=== PATIENT | female | born 1945 | race African-American/Black ===

== ENCOUNTER → 2017-01-16 | Outpatient (CLI) | payer MEDICARE | LOC: OD 15:24 | PROVIDERS: ATTEND Family Medicine | DX: M25.512 Pain in left shoulder (principal) ==

== ENCOUNTER → 2018-09-27 | Outpatient (CLI) | payer MEDICARE ==
--- NOTE | 2018-09-27 10:52 | WOMENS IMAGING REPORT ---
EXAM DESCRIPTION: 3D SCREENING MAMMO BILAT COMPLETED DATE/TIME: 09/27/2018 10:24 am REASON FOR STUDY: SCREENING MAMMO Z12.31 ENCNTR SCREEN MAMMOGRAM FOR MALIGNANT NEOPLASM OF JULITA COMPARISON: [id number] TECHNIQUE: Standard craniocaudal and mediolateral oblique views of each breast recorded using digita l acquisition and breast tomosynthesis. LIMITATIONS: None. FINDINGS: No masses, calcifications or architectural distortion. No areas of suspicion. Read with the assistance of CAD. .[facility] - R2 Cenova Version 1.3 .[facility] - R2 Cenova Version 1.[address] - R2 Cenova Version 2.4 .[facility] [place] - R2 Cenova Version 2.4 .[facility] - R2 Associate Manager [employer] Version 9.2 IMPRESSION: NORMAL MAMMOGRAM. BIRADS 1. BREAST DENSITY: b. There are scattered areas of fibroglandular density. BIRAD: 1 NEGATIVE RECOMMENDATION: ROUTINE SCREENING COMMENT: The patient has been notified of the results by letter per SA requirements. Additional no tification policies are in place for contacting patient with suspicious or incomplete findings. Quality ID #[id number]: The [employer] recommends an annual screening mammogram for women aged 40 years or over. This facility utilizes a reminder system to ensure that all patients receive reminder letters, and/or direct phone calls for appointments. This includes reminders for routine scr eening mammograms, diagnostic mammograms, or other Breast Imaging Interventions when appropriate. Th is patient will be placed in the appropriate reminder system. The [employer] (ACR) has developed recommendations for screening MRI of the breast s in certain patient populations, to be used in conjunction with mammography. Breast MRI surveillanc e may be appropriate for women with more than 20% lifetime risk of developing breast cancer as deter mined by genetic testing, significant family history of the disease, or history of mantle radiation f or Hodgkins Disease. ACR Practice Guidelines 2008. DBT Technology DBT is a type of tomographic mammography. With conventional mammography, overlapping breast tissue ma y make lesions difficult to detect, even with good compression. DBT uses an x-ray tube that rotates a round the breast, taking images at different angles. These images are then combined to create thin sl ices of the breast that the radiologist can view as a 3D reconstruction. The Kapture unit can perform full-field digital mammograms (2D imaging); or DBT (3D imaging); or both, in a combination mode that quickly performs both the mammogram and the tomosynthesis scan while the breast is still compressed. PQRS 6045F: Fluoroscopic imaging is not utilized for breast tomosynthesis. TECHNICAL DOCUMENTATION: FINDING NUMBER: (1) ASSESSMENT: (1) JOB ID: [id number] [email or web address]- All Rights Reserved Reading location - IP/workstation name: [email or web address]
== END ==
LOC: WI 09:42
PROVIDERS: ATTEND Physician Assistant
DX: Z12.31 Encounter for screening mammogram for malignant neoplasm of breast (principal)
CPT/HCPCS: 77063; 77067

== ENCOUNTER 2019-01-09 09:01 | Inpatient (IN) | payer MEDICARE ==
[2019-01-09] MEDS ORDERED: METHYLPREDNISOLONE INJ 125 MG/2 ML SDV IV ONE (09:40)
[2019-01-09] MEDS ORDERED: FAMOTIDINE INJ/PF 20 MG/2 ML SDV IV ONE (09:40)
[2019-01-09] MEDS ORDERED: DIPHENHYDRAMINE HCL 50 MG/ML VIAL IV ONE (09:40)
[2019-01-09] MEDS ORDERED: NORMAL SALINE 250 ML IV PRN (12:03)
[2019-01-09] MEDS ORDERED: TRANEXAMIC ACID INJ/PF 1,000 MG/10 ML SDV IV ONE ×2 (12:07→13:04)
--- NOTE | 2019-01-09 12:43 | ER Document Report ---
Entered by PARESH MILLER SCRIBE 01/09/19 0938 Acting as scribe for:MARGE FERNANDEZ DO ED Allergic Reaction - General Chief Complaint: Lip Swelling Stated Complaint: POSSIBLE ALLERGIC REACTION Time Seen by Provider: 01/09/19 09:26 Mode of Arrival: Ambulatory Information source: Patient Notes: 73-year-old female who presents to the emergency department today with com plaints of lower lip swelling. Patient states she first noticed this lip swelling when she woke up this morning at 0630 this morning. Patient states she has had lip swelling two other times in the past. Patient states during the previous x2 episodes she was on lisinopril, which she has since been taken off of. Patient states the last lip swelling episode she has had was approximately x2 years ago. Patient mentions that she worked outside in her yard yesterday but did not have any insect bites or contact with anything that she thinks could be causing this. Patient states x4 days ago she had an ant bite to her finger but that has cleared up. Patient denies any difficulty swallowing, tongue swelling, throat swelling, or shortness of breath. TRAVEL OUTSIDE OF THE [place] IN LAST 30 DAYS: No - Related Data Allergies/Adverse Reactions: penicillin G [Penicillin G] Allergy (Unknown, Verified 10/21/15 08:17) had as child lisinopril [Lisinopril] Allergy (Verified 10/21/15 08:17) levofloxacin [From Levaquin] Adverse Reaction (Severe, Verified 10/21/15 08:17) Swelling of Throat Past Medical History - General Information source: Patient - Social History Smoking Status: Never Smoker Cigarette use (# per day): No Chew tobacco use (# tins/day): No Frequency of alcohol use: None Drug Abuse: None Lives with: Family Family History: Reviewed & Not Pertinent Patient has suicidal ideation: No Patient has homicidal ideation: No - Past Medical History Cardiac Medical History: Reports: Hx Hypercholesterolemia, Hx Hypertension Past Surgical History: Reports: Hx Breast Surgery - Lump removed from breast in 2010, Hx Hysterectomy, Hx Thyroid Surgery - Left lobe of thryroid removed, Hx TonsillectomyComment Only: Hx Orthopedic Surgery - Feet - Immunizations Hx Diphtheria, Pertussis, Tetanus Vaccination: No Hx Pneumococcal Vaccination: 10/01/12 Review of Systems - Review of Systems Constitutional: No symptoms reported EENT: See HPI, Other - lower lip swelling. denies: Difficulty swallowing, Thr oat swelling Cardiovascular: No symptoms reported Respiratory: No symptoms reported Gastrointestinal: No symptoms reported Genitourinary: No symptoms reported Female Genitourinary: No symptoms reported Musculoskeletal: No symptoms reported Skin: No symptoms reported Hematologic/Lymphatic: No symptoms reported Neurological/Psychological: No symptoms reported -: Yes All other systems reviewed and negative Physical Exam - Vital signs Vitals: Temp Pulse Resp BP Pulse Ox 97.8 F 69 18 155/94 H 97 01/09/19 09:06 01/09/19 09:06 01/09/19 09:06 01/09/19 09:06 01/09/19 09:06 - Notes Notes: PHYSICAL EXAM GENERAL: Alert, interacts well. No acute distress. HEAD: Normocephalic, atraumatic. EYES: Pupils equal, round, and reactive to light. Extraocular movements intact. ENT: Oral mucosa moist, tongue midline. Lower lip is not firm or indurated. Small amount of symmetric lower lip swelling without palpable masses. No tongue swelling. Airway is patent. NECK: Full range of motion. Supple. Trachea midline. LUNGS: Clear to auscultation bilaterally, no wheezes, rales, or rhonchi. No respiratory distress. HEART: Regular rate and rhythm. No murmurs, gallops, or rubs. ABDOMEN: Soft, non-tender. Non-distended. Bowel sounds present in all 4 quadrants. No guarding, rigidity, or rebound. EXTREMITIES: Moves all 4 extremities spontaneously. No edema, radial pulses 2/4 bilaterally. No cyanosis. NEUROLOGICAL: Alert and oriented x3. Normal speech. PSYCH: Normal affect, normal mood. SKIN: Warm, dry, normal turgor. Course - Re-evaluation Re-evalutation: 01/09/19 12:31 Patient has been rechecked, left lower lip is slightly increased in size however she now feels like there is something thick in her mouth, states that she feels like her throat is may be swelling and feels the need to swallow constantly. Patient will be started on FFP and tranexamic acid. Patient is constantly clearing her throat while in the room. Tongue is not swollen. Patient is a Mallampati 4, I am unable to visualize the back of her throat at baseline. No respiratory distress at this time. Dr. Omari Mcneil will be called for possible admission. 01/09/19 12:[address] Mcneil who agrees to admit the patient, request that I consult ENT and that a good CT scan of the neck to look for any signs of epiglottitis. Also requests that I order C1 esterase inhibitor tests. Agrees to admit the patient to the ICU. I am still trying to get a hold of ENT for this inpatient consult. 01/09/19 12:[address] cruz from anesthesiology, she is aware of the patient's presence. Also aware that I am not currently asking her to come over and manage the airway on this patient. Patient is currently maintaining her own airway well 01/09/19 12:48 01/09/19 13:[address] Greene who recommended adding Decadron in addition to the Solu- Medrol. Agrees with ICU bed. Aware of consult from Dr. Mcneil. Also aware that he is not being asked to come in and evaluate the patient at the bedside as an ER consult. This is a inpatient consult but I called to him as a courtesy to Dr. Mcneil. - Vital Signs Vital signs: Temp Pulse Resp BP Pulse Ox 97.8 F 66 15 170/110 H 96 01/09/19 09:06 01/09/19 14:01 01/09/19 14:01 01/09/19 14:00 01/09/19 14:01 - Laboratory Result Diagrams: 01/09/19 12:50 01/09/19 12:50 Laboratory results interpreted by me: 01/09/19 01/09/19 12:50 12:50 Hgb 11.9 L MCV 79 L MCH 26.0 L RDW 16.7 H Monocytes % 2.8 L Chloride 110 H Critical Care Note - Critical Care Note Total time excluding time spent on procedures (mins): 35 Discharge - Discharge Clinical Impression: Angioedema Qualifiers: Encounter type: initial encounter Qualified Code(s): T78.3XXA - Angioneurotic edema, initial encounter Condition: Fair Disposition: ADMITTED INPATIENT Admitting Provider: [facility] Unit Admitted: ICU I personally performed the services described in the documentation, reviewed and edited the documentation which was dictated to the scribe in my presence, and it accurately records my words and actions.
[2019-01-09 13:05] LABS: ABSOLUTE EOSINOPHILS # (AUTO) 0.1 10^3/uL (0.0-0.6); ABSOLUTE LYMPHOCYTES (AUTO) 1.4 10^3/uL (0.5-4.7); ABSOLUTE MONOCYTES (AUTO) 0.1 10^3/uL (0.1-1.4); ABSOLUTE NEUT (AUTO) 3.1 10^3/uL (1.7-8.2); BASOPHILS % (AUTO) 0.8 % (0-2); HEMOGLOBIN 11.9 g/dL (12.0-15.5); LYMPHOCYTES % (AUTO) 28.5 % (13-45); MEAN CORPUSCULAR HGB CONC 33.1 g/dL (32.0-36.0); MEAN CORPUSCULAR VOLUME 79 fl (80-97); MONOCYTES % (AUTO) 2.8 % (3-13); PLATELET COUNT 150 10^3/uL (150-450); RED BLOOD COUNT 4.59 10^6/uL (3.72-5.28); RED CELL DISTRIBUTION WIDTH 16.7 % (11.5-14.0); SEGMENTED NEUTROPHILS % (AUTO) 65.9 % (42-78); TOTAL CELLS COUNTED % (AUTO) 100 %; WHITE BLOOD COUNT 4.8 10^3/uL (4.0-10.5)
[2019-01-09 13:34] LABS: ALANINE AMINOTRANSFERASE 28 U/L (9-52); ALKALINE PHOSPHATASE 65 U/L (38-126); ASPARTATE AMINO TRANSFERASE 31 U/L (14-36); BILIRUBIN,DIRECT 0.2 mg/dL (0.0-0.4); BILIRUBIN,TOTAL 0.4 mg/dL (0.2-1.3); BLOOD UREA NITROGEN 9 mg/dL (7-20); CALCIUM 9.8 mg/dL (8.4-10.2); GLUCOSE 109 mg/dL (75-110); POTASSIUM 4.1 mmol/L (3.6-5.0); TOTAL PROTEIN 7.3 g/dL (6.3-8.2)
[2019-01-09] MEDS ORDERED: ACETAMINOPHEN 325 MG TABLET PO PRN (13:36)
[2019-01-09] MEDS ORDERED: NORMAL SALINE 1000 ML 1,000 ML IV PRN ×2 (13:36→17:24)
[2019-01-09 13:39] LABS: ANION GAP 5 (5-19); CARBON DIOXIDE 28 mmol/L (22-30); CHLORIDE 110 mmol/L (98-107); SODIUM 143.3 mmol/L (137-145)
[2019-01-09] MEDS ORDERED: GLUCAGON,HUMAN RECOMB 1 MG INJ IM PRN (13:40)
[2019-01-09] MEDS ORDERED: DEXTROSE 50%-WATER 25 GM/50 ML DISP.SYRIN IV PRN ×2 (13:40)
[2019-01-09] MEDS ORDERED: DEXTROSE 40% GEL 15 GM TUBE PO PRN ×2 (13:40)
[2019-01-09] MEDS ORDERED: DEXAMETHASONE SOD PHOS INJ 10 MG/1 ML VIAL IM ONE ×2 (13:45→16:15)
[2019-01-09] MEDS ORDERED: METHYLPREDNISOLONE INJ 125 MG/2 ML SDV IV SCH (14:00)
[2019-01-09] MEDS ORDERED: DIPHENHYDRAMINE HCL 25 MG CAPSULE PO PRN (14:42)
[2019-01-09] MEDS ORDERED: LEVOTHYROXINE SODIUM 0.025 MG TABLET PO SCH (14:45)
--- NOTE | 2019-01-09 15:53 | RADIOLOGY REPORT (SQ) ---
EXAM DESCRIPTION: CT SOFT TISSUE NECK WITH COMPLETED DATE/TIME: 01/09/2019 3:29 pm REASON FOR STUDY: angioedema, look at airway COMPARISON: 09/09/2014 TECHNIQUE: Post IV contrasted scanning from skull base through lung apices with review of bone, soft tissue and lung windows. Reconstructed coronal and sagittal MPR images reviewed. All images stored on PACS. All CT scanners at this facility use dose modulation, iterative reconstruction, and/or weight based d osing when appropriate to reduce radiation dose to as low as reasonably achievable (ALARA). [facility]: Dose Right [facility]: CareDose [facility]: Dose Right [facility]: Teradose 4D [facility]: BMEYE CONTRAST TYPE AND DOSE: contrast/concentration: Isovue 350.00 mg/ml; Total Contrast Delivered: 75.0 ml; Total Saline Delivered: 55.0 ml RENAL FUNCTION: GFR > 60. RADIATION DOSE: CT Rad equipment meets quality standard of care and radiation dose reduction techniq ues were employed. CTDIvol: 15.2 - 16.7 mGy. DLP: 906 mGy-cm. . LIMITATIONS: Dental artifact. FINDINGS: SKULL BASE: Intact. MAJOR SALIVARY GLANDS: Approximately 1 cm cyst in the left submandibular gland unchanged. LYMPHADENOPATHY: No adenopathy. MUCOSAL MASSES OR ASYMMETRY: No mucosal masses or asymmetry. LARYNX/CORDS: No abnormal findings. VASCULAR STRUCTURES: The major vessels are patent. LUNG APICES: Clear. BONES: Intact. THYROID: Normal size. No masses. PARANASAL SINUSES: Clear. OTHER: No other significant finding. IMPRESSION: NO SIGNIFICANT FINDING IN THE SOFT TISSUES OF THE NECK. TECHNICAL DOCUMENTATION: JOB ID: [id number] Quality ID # [id number]: Final reports with documentation of one or more dose reduction techniques (e.g., Au tomated exposure control, adjustment of the mA and/or kV according to patient size, use of iterative reconstruction technique) 2010 [employer]- All Rights Reserved Reading location - IP/workstation name: [email or web address]
[2019-01-09] MEDS: INSULIN LISPRO 100 UNIT/ML 3 ML VIAL SUBCUT SCH ×2 (16:15→22:27)
[2019-01-09] MEDS: LEVOTHYROXINE SODIUM 0.075 MG TABLET PO SCH (16:16)
--- NOTE | 2019-01-09 17:25 | PDOC H&P ---
History of Present Illness Admission Date/PCP: 01/09/19 13:02 LOVE PUCKETT MD Patient complains of: Lip swelling History of Present Illness: DULCE CRAWLEY is a 73 year old female This is a 73-year-old female with a history of the hyperlipidemia history of the hypothyroidism status post surgery history of hypertension's with a history of the angioedema in the past due to the lisinopril was off the lisinopril from several years came to the emergency department with the lower lip swelling According the patient she was fine yesterday working in the yard no problems this morning when the patient's workup start seeing some swelling in the lips do not remember any insect bites does not remember any new medications no new foods In the emergency departments patient's lip swelling is getting more worse patient received the IV Solu-Medrol received FFP and received IV Pepcid Patient also given Decadron per ENT instructions Patient when I saw it feel better still have a swelling and feel on the face inside also Patient is denied any difficulty in breathing Patient CT of the neck is negative for any other acute obstructions or any findings At this point decided to patient's in a close monitoring units for the next 24 hours to any further deterioration or any respiratory distressed Patient's already put on IV Solu-Medrol IV Pepcid's IV fluids Patient is denied any chest pain to than any shortness of the breath Past Medical History Cardiac Medical History: Reports: Hyperlipidema, Hypertension Denies: Coronary Artery Disease, Myocardial Infarction Pulmonary Medical History: Denies: Asthma, Bronchitis, Chronic Obstructive Pulmonary Disease (COPD), Pneumonia Neurological Medical History: Denies: Seizures GI Medical History: Denies: Hepatitis, Hiatal Hernia Musculoskeltal Medical History: Denies: Arthritis Hematology: Reports: Anemia Denies: Sickle Cell Disease Past Surgical History Past Surgical History: Reports: Hysterectomy, Tonsillectomy Denies: Amputation, Mastectomy, Pacemaker Comment Only: Orthopedic Surgery - Feet Social History Lives with: Family Smoking Status: Never Smoker Family History Family History: Reviewed & Not Pertinent Parental Family History Reviewed: Yes Children Family History Reviewed: Yes Sibling(s) Family History Reviewed.: Yes Medication/Allergy Home Medications: Levothyroxine Sodium [Synthroid] 75 mcg PO .5DAYSAWEEK 01/09/14 Aspirin [Ecotrin] 81 mg PO DAILY 12/10/14 Diphenhydramine HCl [Allergy Relief] 25 mg PO DAILY 01/09/19 Pitavastatin Calcium [Livalo] 4 mg PO DAILY 01/09/19 Allergies/Adverse Reactions: penicillin G [Penicillin G] Allergy (Unknown, Verified 10/21/15 08:17) had as child lisinopril [Lisinopril] Allergy (Verified 10/21/15 08:17) levofloxacin [From Levaquin] Adverse Reaction (Severe, Verified 10/21/15 08:17) Swelling of Throat Review of Systems Constitutional: ABSENT: chills, fever(s), headache(s), weight gain, weight loss Eyes: ABSENT: visual disturbances Ears: ABSENT: hearing changes Cardiovascular: ABSENT: chest pain, dyspnea on exertion, edema, orthropnea, palpitations Respiratory: ABSENT: cough, hemoptysis Gastrointestinal: ABSENT: abdominal pain, constipation, diarrhea, hematemesis, hematochezia, nausea, vomiting Genitourinary: ABSENT: dysuria, hematuria Musculoskeletal: ABSENT: joint swelling Integumentary: ABSENT: rash, wounds Neurological: ABSENT: abnormal gait, abnormal speech, confusion, dizziness, focal weakness, syncope Psychiatric: ABSENT: anxiety, depression, homidical ideation, suicidal ideation Endocrine: ABSENT: cold intolerance, heat intolerance, menstrual abnormalities, polydipsia, polyuria Hematologic/Lymphatic: ABSENT: easy bleeding, easy bruising, lymphadenopathy Physical Exam Vital Signs: Temp Pulse Resp BP Pulse Ox 97.8 F 66 15 170/110 H 96 01/09/19 09:06 01/09/19 14:01 01/09/19 14:01 01/09/19 14:00 01/09/19 14:01 Intake & Output 01/08/19 01/09/19 01/10/19 06:59 06:59 06:59 Intake Total 323 Balance 323 Weight 98.8 kg General appearance: PRESENT: no acute distress, well-developed, well-nourished Head exam: PRESENT: atraumatic, normocephalic Eye exam: PRESENT: conjunctiva pink, EOMI, PERRLA. ABSENT: scleral icterus Ear exam: PRESENT: normal external ear exam Mouth exam: PRESENT: moist, neck supple, tongue midline Additional comments: Lip swelling is present Unable to examine the back of the throat Throat exam: PRESENT: other Additional comments: Lower lip swelling but unable to examine back of her throat due to the swelling Neck exam: PRESENT: full ROM. ABSENT: carotid bruit, JVD, lymphadenopathy, thyromegaly Respiratory exam: PRESENT: clear to auscultation arie Cardiovascular exam: PRESENT: RRR. ABSENT: diastolic murmur, rubs, systolic murmur Pulses: PRESENT: normal dorsalis pedis pul, +2 pedal pulses bilateral Vascular exam: PRESENT: normal capillary refill GI/Abdominal exam: PRESENT: normal bowel sounds, soft. ABSENT: distended, guarding, mass, organolmegaly, rebound, tenderness Rectal exam: PRESENT: deferred Musculoskeletal exam: PRESENT: ambulatory Neurological exam: PRESENT: alert, awake, oriented to person, oriented to place, oriented to time, oriented to situation, CN II-XII grossly intact. ABSENT: motor sensory deficit Psychiatric exam: PRESENT: appropriate affect, normal mood. ABSENT: homicidal ideation, suicidal ideation Skin exam: PRESENT: dry, intact, warm. ABSENT: cyanosis, rash Results Laboratory Results: 01/09/19 12:50 01/09/19 12:50 01/09/19 01/09/19 01/09/19 12:50 12:50 13:15 WBC 4.8 RBC 4.59 Hgb 11.9 L Hct 36.0 MCV 79 L MCH 26.0 L MCHC 33.1 RDW 16.7 H Plt Count 150 Seg Neutrophils % 65.9 Lymphocytes % 28.5 Monocytes % 2.8 L Eosinophils % 2.0 Basophils % 0.8 Absolute Neutrophils 3.1 Absolute Lymphocytes 1.4 Absolute Monocytes 0.1 Absolute Eosinophils 0.1 Absolute Basophils 0.0 Sodium 143.3 Potassium 4.1 Chloride 110 H Carbon Dioxide 28 Anion Gap 5 BUN 9 Creatinine 0.73 Est GFR ( Amer) > 60 Est GFR (Non-Af Amer) > 60 Glucose 109 Calcium 9.8 Total Bilirubin 0.4 AST 31 ALT 28 Alkaline Phosphatase 65 Total Protein 7.3 Albumin 4.0 Blood Type AB POSITIVE Impressions: Soft Tissue Neck CT 01/09/19 12:37 IMPRESSION: NO SIGNIFICANT FINDING IN THE SOFT TISSUES OF THE NECK. Assessment & Plan - Diagnosis (1) Angioedema Qualifiers: Encounter type: initial encounter Qualified Code(s): T78.3XXA - Angioneurotic edema, initial encounter Is this a current diagnosis for this admission?: Yes Plan: Put the patient in ICU for the next 24-hour for close monitoring for any distressed Continues to IV steroid IV Pepcid's and Benadryl Consult the ENT to further look out inside Will order the C1 inhibitor esterase (2) Hypertension Qualifiers: Hypertension type: essential hypertension Qualified Code(s): I10 - Essential (primary) hypertension Is this a current diagnosis for this admission?: Yes Plan: Consider the Norvasc 5 mg p.o. daily (3) Hyperlipidemia Qualifiers: Hyperlipidemia type: unspecified Qualified Code(s): E78.5 - Hyperlipidemia, unspecified Is this a current diagnosis for this admission?: Yes Plan: Continues to current medications (4) Impaired fasting glucose Is this a current diagnosis for this admission?: Yes Plan: Continues a sliding scale - Time Time Spent: 50 to 70 Minutes Critical Time spent with patient: 35 or more minutes Medications reviewed and adjusted accordingly: Yes Anticipated discharge: Home Within: Other - Inpatient Certification Based on my medical assessment, after consideration of the patient's comorbidities, presenting symptoms, or acuity I expect that the services needed warrant INPATIENT care.: Yes I certify that my determination is in accordance with my understanding of Medicare's requirements for reasonable and necessary INPATIENT services [42 CFR 412.3e].: Yes Medical Necessity: Significant Comorbidiites Make Outpatient Treatment Too Risky, Need Close Monitoring Due to Risk of Patient Decompensation, Need For IV Fluids Post Hospital Care: D/C Manufacturing Quality Inspector Documentation - Plan Summary Plan Summary: Admit the patient in ICU See other MD order
[2019-01-09] MEDS: METHYLPREDNISOLONE INJ 40 MG/1 ML SDV IV SCH (18:10)
[2019-01-09] MEDS: FAMOTIDINE INJ/PF 20 MG/2 ML SDV IV SCH (22:25)
[2019-01-09] MEDS: AMLODIPINE BESYLATE 2.5 MG TABLET PO SCH (22:27)
[2019-01-10] MEDS: METHYLPREDNISOLONE INJ 40 MG/1 ML SDV IV SCH ×3 (01:42→17:58)
[2019-01-10 04:35] LABS: ABSOLUTE LYMPHOCYTES (AUTO) 1.1 10^3/uL (0.5-4.7); ABSOLUTE MONOCYTES (AUTO) 0.1 10^3/uL (0.1-1.4); ABSOLUTE NEUT (AUTO) 7.1 10^3/uL (1.7-8.2); BASOPHILS % (AUTO) 0.1 % (0-2); HEMATOCRIT 33.9 % (36.0-47.0); HEMOGLOBIN 11.4 g/dL (12.0-15.5); LYMPHOCYTES % (AUTO) 12.9 % (13-45); MEAN CORPUSCULAR HEMOGLOBIN 25.9 pg (27.0-33.4); MEAN CORPUSCULAR HGB CONC 33.6 g/dL (32.0-36.0); MEAN CORPUSCULAR VOLUME 77 fl (80-97); MONOCYTES % (AUTO) 1.2 % (3-13); PLATELET COUNT 125 10^3/uL (150-450); RED CELL DISTRIBUTION WIDTH 16.4 % (11.5-14.0); SEGMENTED NEUTROPHILS % (AUTO) 85.8 % (42-78); TOTAL CELLS COUNTED % (AUTO) 100 %; WHITE BLOOD COUNT 8.3 10^3/uL (4.0-10.5)
[2019-01-10 04:53] LABS: ALANINE AMINOTRANSFERASE 24 U/L (9-52); ALBUMIN 3.8 g/dL (3.5-5.0); ALKALINE PHOSPHATASE 58 U/L (38-126); ANION GAP 7 (5-19); ASPARTATE AMINO TRANSFERASE 24 U/L (14-36); BILIRUBIN,DIRECT 0.2 mg/dL (0.0-0.4); BILIRUBIN,TOTAL 0.3 mg/dL (0.2-1.3); BLOOD UREA NITROGEN 12 mg/dL (7-20); CALCIUM 9.7 mg/dL (8.4-10.2); CARBON DIOXIDE 22 mmol/L (22-30); CHLORIDE 113 mmol/L (98-107); GLUCOSE 156 mg/dL (75-110); SODIUM 142.3 mmol/L (137-145); TOTAL PROTEIN 7.1 g/dL (6.3-8.2)
[2019-01-10] MEDS: LEVOTHYROXINE SODIUM 0.075 MG TABLET PO SCH (05:19)
[2019-01-10] MEDS: INSULIN LISPRO 100 UNIT/ML 3 ML VIAL SUBCUT SCH ×3 (07:55→16:17)
[2019-01-10] MEDS: AMLODIPINE BESYLATE 2.5 MG TABLET PO SCH ×2 (10:13→22:14)
[2019-01-10] MEDS: FAMOTIDINE INJ/PF 20 MG/2 ML SDV IV SCH ×2 (10:13→22:17)
[2019-01-10] MEDS: ASPIRIN 81 MG TABLET, ENT COATED PO SCH (10:14)
[2019-01-10] MEDS: ENOXAPARIN SODIUM INJ 40 MG/0.4 ML DISP.SYRIN SUBCUT SCH (10:54)
[2019-01-10] MEDS ORDERED: NORMAL SALINE 1000 ML 1,000 ML IV PRN (12:35)
--- NOTE | 2019-01-10 12:35 | PDOC PROGRESS REPORT ---
Subjective Progress Note for:: 01/10/19 Subjective:: Patient is feeling much better Lip swelling is pretty much resolved ENT evaluate the patient's no any adverse issues Patient's otherwise only thing remember to take the ibuprofen before this happens Patients need another allergies testing evaluation as per discussed with the ENT he will do it Patient has a history of the left hemithyroidectomy for the benign tumor we check the thyroid antibody Reason For Visit: ANGIOEDEMA Physical Exam Vital Signs: Temp Pulse Resp BP Pulse Ox 97.9 F 85 21 H 151/83 H 97 01/10/19 12:30 01/10/19 12:30 01/10/19 12:30 01/10/19 12:30 01/10/19 12:30 Intake & Output 01/09/19 01/10/19 01/11/19 06:59 06:59 06:59 Intake Total 1254 200 Output Total 600 350 Balance 654 -150 Weight 99.8 kg General appearance: PRESENT: no acute distress, well-developed, well-nourished Head exam: PRESENT: atraumatic, normocephalic Eye exam: PRESENT: conjunctiva pink, EOMI, PERRLA. ABSENT: scleral icterus Ear exam: PRESENT: normal external ear exam Mouth exam: PRESENT: moist, tongue midline Neck exam: PRESENT: full ROM. ABSENT: carotid bruit, JVD, lymphadenopathy, thyromegaly Respiratory exam: PRESENT: clear to auscultation arie Cardiovascular exam: PRESENT: RRR. ABSENT: diastolic murmur, rubs, systolic mu rmur Vascular exam: PRESENT: normal capillary refill GI/Abdominal exam: PRESENT: normal bowel sounds, soft. ABSENT: distended, guarding, mass, organolmegaly, rebound, tenderness Rectal exam: PRESENT: deferred Musculoskeletal exam: PRESENT: ambulatory Neurological exam: PRESENT: alert, awake, oriented to person, oriented to place, oriented to time, oriented to situation, CN II-XII grossly intact. ABSENT: motor sensory deficit Psychiatric exam: PRESENT: appropriate affect, normal mood. ABSENT: homicidal ideation, suicidal ideation Skin exam: PRESENT: dry, intact, warm. ABSENT: cyanosis, rash Results Laboratory Results: 01/10/19 04:20 01/10/19 04:20 01/09/19 01/09/19 01/09/19 12:50 12:50 13:15 WBC 4.8 RBC 4.59 Hgb 11.9 L Hct 36.0 MCV 79 L MCH 26.0 L MCHC 33.1 RDW 16.7 H Plt Count 150 Seg Neutrophils % 65.9 Lymphocytes % 28.5 Monocytes % 2.8 L Eosinophils % 2.0 Basophils % 0.8 Absolute Neutrophils 3.1 Absolute Lymphocytes 1.4 Absolute Monocytes 0.1 Absolute Eosinophils 0.1 Absolute Basophils 0.0 Sodium 143.3 Potassium 4.1 Chloride 110 H Carbon Dioxide 28 Anion Gap 5 BUN 9 Creatinine 0.73 Est GFR ( Amer) > 60 Est GFR (Non-Af Amer) > 60 Glucose 109 Calcium 9.8 Total Bilirubin 0.4 AST 31 ALT 28 Alkaline Phosphatase 65 Total Protein 7.3 Albumin 4.0 Blood Type AB POSITIVE 01/10/19 01/10/19 04:20 04:20 WBC 8.3 RBC 4.40 Hgb 11.4 L Hct 33.9 L MCV 77 L MCH 25.9 L MCHC 33.6 RDW 16.4 H Plt Count 125 L Seg Neutrophils % 85.8 H Lymphocytes % 12.9 L Monocytes % 1.2 L Eosinophils % 0.0 Basophils % 0.1 Absolute Neutrophils 7.1 Absolute Lymphocytes 1.1 Absolute Monocytes 0.1 Absolute Eosinophils 0.0 Absolute Basophils 0.0 Sodium 142.3 Potassium 4.0 Chloride 113 H Carbon Dioxide 22 Anion Gap 7 BUN 12 Creatinine 0.73 Est GFR ( Amer) > 60 Est GFR (Non-Af Amer) > 60 Glucose 156 H Calcium 9.7 Total Bilirubin 0.3 AST 24 ALT 24 Alkaline Phosphatase 58 Total Protein 7.1 Albumin 3.8 Blood Type Impressions: Soft Tissue Neck CT 01/09/19 12:37 IMPRESSION: NO SIGNIFICANT FINDING IN THE SOFT TISSUES OF THE NECK. Assessment & Plan - Diagnosis (1) Angioedema Qualifiers: Encounter type: initial encounter Qualified Code(s): T78.3XXA - Angioneurotic edema, initial encounter Is this a current diagnosis for this admission?: Yes Plan: Resolving We decrease the IV Solu-Medrol Continues to IV Pepcid Continues IV fluid (2) Hypertension Qualifiers: Hypertension type: essential hypertension Qualified Code(s): I10 - Essential (primary) hypertension Is this a current diagnosis for this admission?: Yes Plan: Consider the Norvasc 5 mg p.o. daily (3) Hyperlipidemia Qualifiers: Hyperlipidemia type: unspecified Qualified Code(s): E78.5 - Hyperlipidemia, unspecified Is this a current diagnosis for this admission?: Yes Plan: Continues to current medications (4) Impaired fasting glucose Is this a current diagnosis for this admission?: Yes Plan: Continues a sliding scale - Time Time Spent with patient: 15-24 minutes Medications reviewed and adjusted accordingly: Yes Anticipated discharge: Home Within: within 24 hours - Plan Summary Plan Summary: As per the patient in [facility] Switch to the p.o. medications
--- NOTE | 2019-01-10 15:39 | CONSULTATION REPORT E ---
Consultation Report NAME: DULCE CRAWLEY : 1945 AGE: 73Y DATE: 612 A TO: ESSENCE WANG D.O. FROM: LOVE PUCKETT M.D. Requesting Physician CHIEF COMPLAINT: Swelling of the lips. HISTORY OF PRESENT ILLNESS: This a 73-year-old female who was evaluated in the [facility] Emergency Room setting on 01/09/2019 for swelling of her lips. The patient is with a history of angioneurotic edema and this is her fourth episode of this condition over the past 3 years. However, this the first time she felt she needed to go to the emergency room due to the degree of swelling. She denied any difficulty with breathing or shortness of breath. The patient was treated in the ER setting with IV Solu-Medrol and received FFP and IV Pepcid. The patient was also given Decadron IV. The patient underwent CT neck imaging, which was unremarkable overall, except for a left submandibular gland cyst measuring approximately 1 cm in size. PAST MEDICAL HISTORY: The patient's past medical history is same as above and is otherwise treated for hypertension and hyperlipidemia. PAST SURGICAL HISTORY: She reports a history of undergoin. Hysterectomy. 2. Tonsillectomy SOCIAL HISTORY: She lives with her family and has never smoked. FAMILY HISTORY: Was reviewed and not pertinent. MEDICATIONS: 1. Levothyroxine. 2. Aspirin. 3. Diphenhydramine. 4. Livalo. ALLERGIES/ADVERSE REACTIONS: PENICILLIN, LISINOPRIL, AND LEVOFLOXACIN. REVIEW OF SYSTEMS: CONSTITUTIONAL: See HPI. HEENT: See HPI. CARDIOVASCULAR: History of hypertension and hyperlipidemia. RESPIRATORY: Unremarkable. GASTROINTESTINAL: Unremarkable. GENITOURINARY: Unremarkable. MUSCULOSKELETAL: Unremarkable. NEUROLOGICAL: Unremarkable. PSYCHIATRIC: Unremarkable. ENDOCRINE: Notable for the patient taking Synthroid for hypothyroidism. HEMATOLOGIC/LYMPHATIC: Unremarkable. HEMATOLOGY/ONCOLOGY: Unremarkable. PHYSICAL EXAMINATION: VITAL SIGNS: Temperature 97.8, pulse 66, respirations 15, blood pressure 170/110, pulse ox is 96% on room air. GENERAL APPEARANCE: The patient was noted to be resting comfortably in an ICU bed. She was in no apparent distress and was able to talk without difficulty in a normal-sounding voice. HEENT: Head: Normocephalic, atraumatic. Eyes: Extraocular muscles were intact. The conjunctivae were unremarkable in appearance. Ears: External auditory canals were with minimal cerumen and the tympanic membranes appeared intact with no middle ear effusions present. The oral cavity, oropharynx was with moist mucous membranes. The tongue was enlarged in midline. The soft palatal tissues were redundant in nature. The lips were with minimal swelling/edema, more notable at the lower lip. NECK: Full range of motion and there was no lymphadenopathy or thyromegaly noted. RESPIRATORY: The patient was with equal symmetric rise and fall of the chest and there was no stridor noted. MUSCULOSKELETAL: The patient is moving all extremities without difficulty and she was able to sit on the edge of the bed without difficulty. NEUROLOGIC: Cranial nerves 2 through 12 were intact. SKIN: Dry and warm. PROCEDURE: Flexible fiberoptic laryngeal endoscopy: The patient underwent verbal consent prior to endoscopic evaluation, which she voiced an understanding of and agreed to proceed with. Flexible fiberoptic endoscopy with no sinonasal polyps or discharge noted. The CLUTCH INSPECTOR/toyin were clear. The OP/HP were widely patent, the epiglottis was with crisp margins. There was lingual tonsil fullness noted bilateral. The TDC were symmetric and mobile and without edematous changes or other pathology noted. There were changes consistent with acid reflux with edema noted. The patient tolerated the procedure well and there were no complications. and platelets were 150. The CT soft tissue neck imaging was notable for a left submandibular gland cyst measuring approximately 1 cm in size, otherwise the study was essentially unremarkable overall. ASSESSMENT AND PLAN: 1. History of angioneurotic edema: There is no additional workup or treatment required at present other than use of steroids as indicated. The patient's history and endoscopic findings were discussed in detail with Dr. Puckett. Her upper airway is otherwise widely patent on endoscopic evaluation. 2. History of hearing loss: The patient will plan to undergo an audiology evaluation and then follow up in ENT for further management. 3. History of tinnitus: The patient will plan to undergo an audiology evaluation as an outpatient and follow up in ENT for further management. 4. Computed tomography (CT) neck imaging with a left submandibular gland cyst seen, incidentally noted: The patient denied history of symptoms consistent with sialadenitis or sialolithiasis. This finding most likely represents a mucous retention cyst or sialocele. The patient will plan to follow up with ENT on an outpatient basis. DICTATING PHYSICIAN: ESSENCE WANG D.O. [id number] PHY#: [id number] ID: [id number] JOB#: [id number] ACCT: [id number] cc:ESSENCE WANG D.O. >
[2019-01-11] MEDS: INSULIN LISPRO 100 UNIT/ML 3 ML VIAL SUBCUT SCH ×5 (02:01→21:16)
[2019-01-11] MEDS: METHYLPREDNISOLONE INJ 40 MG/1 ML SDV IV SCH ×2 (02:37→09:52)
[2019-01-11 04:40] LABS: ABSOLUTE LYMPHOCYTES (AUTO) 1.2 10^3/uL (0.5-4.7); ABSOLUTE MONOCYTES (AUTO) 0.5 10^3/uL (0.1-1.4); ABSOLUTE NEUT (AUTO) 13.5 10^3/uL (1.7-8.2); BASOPHILS % (AUTO) 0.1 % (0-2); HEMOGLOBIN 10.7 g/dL (12.0-15.5); LYMPHOCYTES % (AUTO) 7.8 % (13-45); MEAN CORPUSCULAR HEMOGLOBIN 25.4 pg (27.0-33.4); MEAN CORPUSCULAR HGB CONC 32.5 g/dL (32.0-36.0); MEAN CORPUSCULAR VOLUME 78 fl (80-97); MONOCYTES % (AUTO) 3.2 % (3-13); PLATELET COUNT 127 10^3/uL (150-450); RED BLOOD COUNT 4.22 10^6/uL (3.72-5.28); RED CELL DISTRIBUTION WIDTH 16.5 % (11.5-14.0); SEGMENTED NEUTROPHILS % (AUTO) 88.9 % (42-78); TOTAL CELLS COUNTED % (AUTO) 100 %; WHITE BLOOD COUNT 15.2 10^3/uL (4.0-10.5)
[2019-01-11 05:02] LABS: ALANINE AMINOTRANSFERASE 29 U/L (9-52); ALBUMIN 3.4 g/dL (3.5-5.0); ALKALINE PHOSPHATASE 54 U/L (38-126); ANION GAP 5 (5-19); ASPARTATE AMINO TRANSFERASE 22 U/L (14-36); BILIRUBIN,DIRECT 0.2 mg/dL (0.0-0.4); BILIRUBIN,TOTAL 0.2 mg/dL (0.2-1.3); BLOOD UREA NITROGEN 13 mg/dL (7-20); CARBON DIOXIDE 24 mmol/L (22-30); CHLORIDE 112 mmol/L (98-107); GLUCOSE 136 mg/dL (75-110); POTASSIUM 3.7 mmol/L (3.6-5.0); SODIUM 141.4 mmol/L (137-145); TOTAL PROTEIN 6.5 g/dL (6.3-8.2)
[2019-01-11] MEDS: LEVOTHYROXINE SODIUM 0.075 MG TABLET PO SCH (05:42)
[2019-01-11 07:40] LABS: THYROID PEROXIDASE (TPO) AB 15 IU/mL (0-34)
[2019-01-11] MEDS: ENOXAPARIN SODIUM INJ 40 MG/0.4 ML DISP.SYRIN SUBCUT SCH (09:44)
[2019-01-11] MEDS: AMLODIPINE BESYLATE 2.5 MG TABLET PO SCH (09:52)
[2019-01-11] MEDS: FAMOTIDINE INJ/PF 20 MG/2 ML SDV IV SCH ×2 (09:52→21:23)
[2019-01-11] MEDS: ASPIRIN 81 MG TABLET, ENT COATED PO SCH (09:52)
--- NOTE | 2019-01-11 11:18 | PDOC PROGRESS REPORT ---
Subjective Progress Note for:: 01/11/19 Subjective:: Patient is feeling much better Patient all symptoms resolved Patient's white count is elevated most likely related to the steroid Reason For Visit: ANGIOEDEMA Physical Exam Vital Signs: Temp Pulse Resp BP Pulse Ox 98.6 F 69 18 133/82 H 98 01/11/19 08:00 01/11/19 08:00 01/11/19 08:00 01/11/19 08:00 01/11/19 08:00 Intake & Output 01/10/19 01/11/19 01/12/19 06:59 06:59 06:59 Intake Total 1254 1769 Output Total 600 2200 Balance 654 -431 Weight 99.8 kg 99.1 kg General appearance: PRESENT: no acute distress, well-developed, well-nourished Head exam: PRESENT: atraumatic, normocephalic Eye exam: PRESENT: conjunctiva pink, EOMI, PERRLA. ABSENT: scleral icterus Ear exam: PRESENT: normal external ear exam Mouth exam: PRESENT: moist, tongue midline Neck exam: PRESENT: full ROM. ABSENT: carotid bruit, JVD, lymphadenopathy, thyromegaly Respiratory exam: PRESENT: clear to auscultation arie Cardiovascular exam: PRESENT: RRR. ABSENT: diastolic murmur, rubs, systolic murmur Pulses: PRESENT: normal dorsalis pedis pul, +2 pedal pulses bilateral Vascular exam: PRESENT: normal capillary refill GI/Abdominal exam: PRESENT: normal bowel sounds, soft. ABSENT: distended, guarding, mass, organolmegaly, rebound, tenderness Rectal exam: PRESENT: deferred Musculoskeletal exam: PRESENT: ambulatory Neurological exam: PRESENT: alert, awake, oriented to person, oriented to place, oriented to time, oriented to situation, CN II-XII grossly intact. ABSENT: motor sensory deficit Psychiatric exam: PRESENT: appropriate affect, normal mood. ABSENT: homicidal ideation, suicidal ideation Skin exam: PRESENT: dry, intact, warm. ABSENT: cyanosis, rash Results Laboratory Results: 01/11/19 03:52 01/11/19 03:52 01/11/19 01/11/19 03:52 03:52 WBC 15.2 H RBC 4.22 Hgb 10.7 L Hct 33.0 L MCV 78 L MCH 25.4 L MCHC 32.5 RDW 16.5 H Plt Count 127 L Seg Neutrophils % 88.9 H Lymphocytes % 7.8 L Monocytes % 3.2 Eosinophils % 0.0 Basophils % 0.1 Absolute Neutrophils 13.5 H Absolute Lymphocytes 1.2 Absolute Monocytes 0.5 Absolute Eosinophils 0.0 Absolute Basophils 0.0 Sodium 141.4 Potassium 3.7 Chloride 112 H Carbon Dioxide 24 Anion Gap 5 BUN 13 Creatinine 0.75 Est GFR ( Amer) > 60 Est GFR (Non-Af Amer) > 60 Glucose 136 H Calcium 9.0 Total Bilirubin 0.2 AST 22 ALT 29 Alkaline Phosphatase 54 Total Protein 6.5 Albumin 3.4 L Impressions: Soft Tissue Neck CT 01/09/19 12:37 IMPRESSION: NO SIGNIFICANT FINDING IN THE SOFT TISSUES OF THE NECK. Assessment & Plan - Diagnosis (1) Angioedema Qualifiers: Encounter type: initial encounter Qualified Code(s): T78.3XXA - Angioneurotic edema, initial encounter Is this a current diagnosis for this admission?: Yes Plan: Currently all improving We will switch to the p.o. steroid Continues the Pepcid and antihistamine Patients need to further allergy evaluation is outpatient (2) Hypertension Qualifiers: Hypertension type: essential hypertension Qualified Code(s): I10 - Essential (primary) hypertension Is this a current diagnosis for this admission?: Yes Plan: Consider the Norvasc 5 mg p.o. daily (3) Hyperlipidemia Qualifiers: Hyperlipidemia type: unspecified Qualified Code(s): E78.5 - Hyperlipidemia, unspecified Is this a current diagnosis for this admission?: Yes Plan: Continues to current medications (4) Impaired fasting glucose Is this a current diagnosis for this admission?: Yes Plan: Continues a sliding scale - Time Time Spent with patient: 15-24 minutes Medications reviewed and adjusted accordingly: Yes Anticipated discharge: Home Within: within 24 hours - Plan Summary Plan Summary: Currently all stable
[2019-01-11] MEDS ORDERED: AMLODIPINE BESYLATE 2.5 MG TABLET PO ONE (17:00)
[2019-01-11] MEDS ORDERED: AMLODIPINE BESYLATE 2.5 MG TABLET ONE (17:30)
[2019-01-11] MEDS: PREDNISONE 20 MG TABLET PO SCH (17:49)
[2019-01-11] MEDS: AMLODIPINE BESYLATE 5 MG TABLET PO SCH (21:23)
[2019-01-12] MEDS ORDERED: LEVOTHYROXINE SODIUM 0.075 MG TABLET ONE (06:33)
[2019-01-12] MEDS: LEVOTHYROXINE SODIUM 0.075 MG TABLET PO SCH (06:41)
[2019-01-12 07:09] LABS: ABSOLUTE MONOCYTES (AUTO) 0.8 10^3/uL (0.1-1.4); ABSOLUTE NEUT (AUTO) 11.7 10^3/uL (1.7-8.2); BASOPHILS % (AUTO) 0.1 % (0-2); HEMATOCRIT 33.5 % (36.0-47.0); LYMPHOCYTES % (AUTO) 13.7 % (13-45); MEAN CORPUSCULAR HEMOGLOBIN 25.7 pg (27.0-33.4); MEAN CORPUSCULAR HGB CONC 32.8 g/dL (32.0-36.0); MEAN CORPUSCULAR VOLUME 78 fl (80-97); MONOCYTES % (AUTO) 5.4 % (3-13); PLATELET COUNT 146 10^3/uL (150-450); RED BLOOD COUNT 4.27 10^6/uL (3.72-5.28); RED CELL DISTRIBUTION WIDTH 16.5 % (11.5-14.0); SEGMENTED NEUTROPHILS % (AUTO) 80.8 % (42-78); TOTAL CELLS COUNTED % (AUTO) 100 %; WHITE BLOOD COUNT 14.5 10^3/uL (4.0-10.5)
[2019-01-12] MEDS: INSULIN LISPRO 100 UNIT/ML 3 ML VIAL SUBCUT SCH ×4 (07:13→22:19)
[2019-01-12 07:27] LABS: ALANINE AMINOTRANSFERASE 30 U/L (9-52); ALBUMIN 3.5 g/dL (3.5-5.0); ALKALINE PHOSPHATASE 49 U/L (38-126); ANION GAP 6 (5-19); ASPARTATE AMINO TRANSFERASE 23 U/L (14-36); BILIRUBIN,DIRECT 0.2 mg/dL (0.0-0.4); BILIRUBIN,TOTAL 0.3 mg/dL (0.2-1.3); BLOOD UREA NITROGEN 14 mg/dL (7-20); CALCIUM 9.2 mg/dL (8.4-10.2); CARBON DIOXIDE 27 mmol/L (22-30); CHLORIDE 109 mmol/L (98-107); GLUCOSE 102 mg/dL (75-110); POTASSIUM 3.9 mmol/L (3.6-5.0); SODIUM 142.2 mmol/L (137-145); TOTAL PROTEIN 6.7 g/dL (6.3-8.2)
[2019-01-12] MEDS: ENOXAPARIN SODIUM INJ 40 MG/0.4 ML DISP.SYRIN SUBCUT SCH (09:15)
[2019-01-12] MEDS: FAMOTIDINE INJ/PF 20 MG/2 ML SDV IV SCH ×2 (09:18→22:15)
[2019-01-12] MEDS: ASPIRIN 81 MG TABLET, ENT COATED PO SCH (09:19)
[2019-01-12] MEDS: AMLODIPINE BESYLATE 5 MG TABLET PO SCH ×2 (09:19→22:14)
[2019-01-12] MEDS: PREDNISONE 20 MG TABLET PO SCH (09:20)
--- NOTE | 2019-01-12 10:29 | PDOC DISCHARGE SUMMARY ---
General - Admit/Disc Date/PCP Admission Date/Primary Care Provider: 01/09/19 13:02 LOVE PUCKETT MD Discharge Date: 01/12/19 - Discharge Diagnosis (1) Angioedema Is this a current diagnosis for this admission?: Yes Summary: Currently all resolved Patient's continues with the steroid Pepcid and Xyzal We also given EpiPen Patients need of further evaluation as outpatients for the software engineering analyst and follow- up with ENT (2) Hypertension Is this a current diagnosis for this admission?: Yes Summary: Continues on Norvasc 2.5 mg twice a day (3) Hyperlipidemia Is this a current diagnosis for this admission?: Yes (4) Impaired fasting glucose Is this a current diagnosis for this admission?: Yes Summary: Low-carb diet - Additional Information Discharge Diet: Regular Discharge Activity: Activity As Tolerated Prescriptions: Epinephrine [Epipen 2-Mathew] 0.3 mg IJ ONCE PRN #2 auto.injct PRN Reason: Famotidine [Pepcid 20 mg Tablet] 20 mg PO BID #60 tablet Levocetirizine Dihydrochloride [Xyzal] 5 mg PO DAILY #30 tablet Prednisone [Deltasone 20 mg Tablet] 20 mg PO DAILY #10 tablet Home Medications: Levothyroxine Sodium [Synthroid] 75 mcg PO SUMOTUWETHFR@0600 01/09/14 Aspirin [Ecotrin] 81 mg PO DAILY 09/09/14 Levothyroxine Sodium [Synthroid 0.075 mg Tablet] 37.5 mcg PO SA@0600 01/09/19 Pitavastatin Calcium [Livalo] 4 mg PO DAILY 01/09/19 Epinephrine [Epipen 2-Mathew] 0.3 mg IJ ONCE PRN #2 auto.injct 01/12/19 Famotidine [Pepcid 20 mg Tablet] 20 mg PO BID #60 tablet 01/12/19 Levocetirizine Dihydrochloride [Xyzal] 5 mg PO DAILY #30 tablet 01/12/19 Prednisone [Deltasone 20 mg Tablet] 20 mg PO DAILY #10 tablet 01/12/19 History of Present Illness History of Present Illness: DULCE CRAWLEY is a 73 year old female This is a 73-year-old female with a history of the hyperlipidemia history of the hypothyroidism status post surgery history of hypertension's with a history of the angioedema in the past due to the lisinopril was off the lisinopril from several years came to the emergency department with the lower lip swelling According the patient she was fine yesterday working in the yard no problems this morning when the patient's workup start seeing some swelling in the lips do not remember any insect bites does not remember any new medications no new foods In the emergency departments patient's lip swelling is getting more worse patient received the IV Solu-Medrol received FFP and received IV Pepcid Patient also given Decadron per ENT instructions Patient when I saw it feel better still have a swelling and feel on the face inside also Patient is denied any difficulty in breathing Patient CT of the neck is negative for any other acute obstructions or any findings At this point decided to patient's in a close monitoring units for the next 24 hours to any further deterioration or any respiratory distressed Patient's already put on IV Solu-Medrol IV Pepcid's IV fluids Patient is denied any chest pain to than any shortness of the breath Hospital Course Hospital Course: This is a 73-year-old female presenting the emergency department with the angioedema with the second episodes according to the patient states he took the ibuprofen and eat some food but pretty much usual food In the emergency department patient's lower lip was swelling giving the FFP and IV Solu-Medrol and admitting in the hospital ENT was evaluated and do the laryngoscope pretty much all stable CT of the neck was all stable Patient was switched to the IV to the p.o. steroid Patient white count was elevated due to the steroid but patient having no fever no other symptoms Patient otherwise doing well p.o. intake is good move around At this point patient is discharged with the p.o. steroid as per discussed with the ENT need outpatient further evaluations for the this angioedema Physical Exam Vital Signs: Temp Pulse Resp BP Pulse Ox 98.2 F 57 L 16 148/87 H 100 01/12/19 09:48 01/12/19 09:48 01/12/19 09:48 01/12/19 09:48 01/12/19 09:48 Intake & Output 01/11/19 01/12/19 01/13/19 06:59 06:59 06:59 Intake Total 1769 477 Output Total 2200 Balance -431 477 Weight 99.1 kg 99.1 kg General appearance: PRESENT: no acute distress, well-developed, well-nourished Head exam: PRESENT: atraumatic, normocephalic Eye exam: PRESENT: conjunctiva pink, EOMI, PERRLA. ABSENT: scleral icterus Ear exam: PRESENT: normal external ear exam Mouth exam: PRESENT: moist, tongue midline Additional comments: All normal Neck exam: PRESENT: full ROM. ABSENT: carotid bruit, JVD, lymphadenopathy, thyromegaly Respiratory exam: PRESENT: clear to auscultation arie Cardiovascular exam: PRESENT: RRR. ABSENT: diastolic murmur, rubs, systolic murmur Vascular exam: PRESENT: normal capillary refill GI/Abdominal exam: PRESENT: normal bowel sounds, soft. ABSENT: distended, guarding, mass, organolmegaly, rebound, tenderness Rectal exam: PRESENT: deferred Musculoskeletal exam: PRESENT: ambulatory Neurological exam: PRESENT: alert, awake, oriented to person, oriented to place, oriented to time, oriented to situation, CN II-XII grossly intact. ABSENT: simona r sensory deficit Psychiatric exam: PRESENT: appropriate affect, normal mood. ABSENT: homicidal ideation, suicidal ideation Skin exam: PRESENT: dry, intact, warm. ABSENT: cyanosis, rash Results Laboratory Results: 01/12/19 05:39 01/12/19 05:39 01/12/19 01/12/19 05:39 05:39 WBC 14.5 H RBC 4.27 Hgb 11.0 L Hct 33.5 L MCV 78 L MCH 25.7 L MCHC 32.8 RDW 16.5 H Plt Count 146 L Seg Neutrophils % 80.8 H Lymphocytes % 13.7 Monocytes % 5.4 Eosinophils % 0.0 Basophils % 0.1 Absolute Neutrophils 11.7 H Absolute Lymphocytes 2.0 Absolute Monocytes 0.8 Absolute Eosinophils 0.0 Absolute Basophils 0.0 Sodium 142.2 Potassium 3.9 Chloride 109 H Carbon Dioxide 27 Anion Gap 6 BUN 14 Creatinine 0.83 Est GFR ( Amer) > 60 Est GFR (Non-Af Amer) > 60 Glucose 102 Calcium 9.2 Total Bilirubin 0.3 AST 23 ALT 30 Alkaline Phosphatase 49 Total Protein 6.7 Albumin 3.5 Impressions: Soft Tissue Neck CT 01/09/19 12:37 IMPRESSION: NO SIGNIFICANT FINDING IN THE SOFT TISSUES OF THE NECK. Qualifiers - * PATIENT BEING DISCHARGED WITH ANY OF THE FOLLOWING DIAGNOSIS: No VTE patient discharged on overlapping Therapy?: Yes Plan Time Spent: Greater than 30 Minutes - Patient is discharged home with a stable conditions
[2019-01-12] MEDS ORDERED: METHYLPREDNISOLONE INJ 40 MG/1 ML SDV IV SCH ×2 (14:45→22:00)
[2019-01-12] MEDS ORDERED: DEXAMETHASONE SOD PHOS INJ 10 MG/1 ML VIAL IV ONE (16:45)
[2019-01-12] MEDS ORDERED: DIPHENHYDRAMINE HCL 50 MG/ML VIAL IV PRN (17:16)
--- NOTE | 2019-01-12 17:39 | Progress Note ---
Provider Note Provider Note: This is a 73-year-old female was admitted for the angioedema not sure versus hereditary angioedema versus the other because patient was giving FFP Treximet and patient also giving the Solu-Medrol and Pepcid in the emergency department and pretty much all symptoms resolved Patients treated with the tapering dose of the steroids Pepcid and a bilateral in patients pretty much on the lower lip angioedema is response very well and resolved Patient seen by ENT and suggests tapering dose of the prednisone Patient almost when I saw her this morning doing well and ready to discharge home and the patient's before the discharge home came to the nursing station and noticed after eating the lunch developing the right upper lip swelling which is sudden onset Patients at this point back to the close monitoring unit when I saw the patient definitely a upper lip swelling will patients feel some heaviness but denied any shortness of the breath Denied any other symptoms Patient airway is all clear Patient's vital signs all stable discussed with the ENT on-call for Dr. Palafox And suggest the continues the IV Decadron And he will follow Discussed with the allergy and deck mate Dr. Mcclendon at [facility] and suggest that not sure between bradykinin versus systemic angioedema Bradykinin response very well with the FFP but he wants to try the IV steroid 20 mg Zyrtec and Pepcid and if it does not respond then step up the FFP and IM epinephrine 0.3 mg According to the distance learning unit leader most of the patients did not admit after giving the treatment and discharged with a tapering dose of the steroid and follow outpatient in the clinic's Discussed with the patient today will give her Zyrtec 20 mg p.o. times now continues to Decadron 8 mg 3 dose and then taper and will give her 1 unit of the FFP while the patient currently developed very fast and unfortunately not more resources we will treat right now the patient and once the patient is successfully treated follow outpatient further evaluations with the warper fixer Patient seemed extubated some functions is normal was all discussed with the warper fixer and deck mate and [facility] Discussed with the family and the bedside I do not see any respiratory distressed or any adverse issue at this point We will close monitor patient in ICU
[2019-01-12] MEDS ORDERED: TRANEXAMIC ACID INJ/PF 1,000 MG/10 ML SDV IV ONE (17:51)
[2019-01-12] MEDS ORDERED: CETIRIZINE HCL ORAL SOLN 5 MG/5 ML UDCUP ONE (17:53)
[2019-01-12] MEDS ORDERED: TRANEXAMIC ACID 1,000 MG in DEXTROSE 5%-WATER 50 ML IV ONE (18:00)
[2019-01-12] MEDS ORDERED: CETIRIZINE 10 MG TABLET PO ONE (18:00)
[2019-01-12] MEDS ORDERED: METHYLPREDNISOLONE INJ 125 MG/2 ML SDV IV SCH (22:00)
[2019-01-13] MEDS ORDERED: DEXAMETHASONE SOD PHOS INJ 10 MG/1 ML VIAL IV SCH (02:00)
[2019-01-13] MEDS: LEVOTHYROXINE SODIUM 0.075 MG TABLET PO SCH (05:28)
[2019-01-13 07:18] LABS: THYROGLOBULIN AB SO <1.0 IU/mL (0.0-0.9)
[2019-01-13] MEDS: INSULIN LISPRO 100 UNIT/ML 3 ML VIAL SUBCUT SCH ×4 (08:57→21:31)
--- NOTE | 2019-01-13 09:44 | PDOC PROGRESS REPORT ---
Subjective Progress Note for:: 01/13/19 Subjective:: Patient is feeling much better Right upper lip swelling is pretty much resolving Patient denied any short of breath Denied any difficulty in swallowing Patient as per discussed with the invertebrate paleontologist yesterday suggest a 3 dose of the Decadron IV and then switch to the p.o. tapering dose of the steroids and the Zyrtec 20 mg p.o. daily Reason For Visit: ANGIOEDEMA Physical Exam Vital Signs: Temp Pulse Resp BP Pulse Ox 98.5 F 58 L 13 146/88 H 100 01/13/19 03:15 01/13/19 08:00 01/13/19 08:00 01/13/19 08:00 01/13/19 08:00 Intake & Output 01/12/19 01/13/19 01/14/19 06:59 06:59 06:59 Intake Total 477 366 Output Total 1820 Balance 477 -1454 Weight 99.1 kg 96 kg General appearance: PRESENT: no acute distress, well-developed, well-nourished Head exam: PRESENT: atraumatic, normocephalic Eye exam: PRESENT: conjunctiva pink, EOMI, PERRLA. ABSENT: scleral icterus Ear exam: PRESENT: normal external ear exam Mouth exam: PRESENT: moist, tongue midline Neck exam: PRESENT: full ROM. ABSENT: carotid bruit, JVD, lymphadenopathy, thyromegaly Respiratory exam: PRESENT: clear to auscultation arie Cardiovascular exam: PRESENT: RRR. ABSENT: diastolic murmur, rubs, systolic murmur Vascular exam: PRESENT: normal capillary refill GI/Abdominal exam: PRESENT: normal bowel sounds, soft. ABSENT: distended, guarding, mass, organolmegaly, rebound, tenderness Rectal exam: PRESENT: deferred Extremities exam: ABSENT: pedal edema Musculoskeletal exam: PRESENT: ambulatory Neurological exam: PRESENT: alert, awake, oriented to person, oriented to place, oriented to time, oriented to situation, CN II-XII grossly intact. ABSENT: motor sensory deficit Psychiatric exam: PRESENT: appropriate affect, normal mood. ABSENT: homicidal ideation, suicidal ideation Skin exam: PRESENT: dry, intact, warm. ABSENT: cyanosis, rash Results Laboratory Results: 01/12/19 05:39 01/12/19 05:39 01/12/19 17:45 Blood Type AB POSITIVE Impressions: Soft Tissue Neck CT 01/09/19 12:37 IMPRESSION: NO SIGNIFICANT FINDING IN THE SOFT TISSUES OF THE NECK. Assessment & Plan - Diagnosis (1) Angioedema Qualifiers: Encounter type: initial encounter Qualified Code(s): T78.3XXA - Angioneurotic edema, initial encounter Is this a current diagnosis for this admission?: Yes Plan: Patient's C1 esterase inhibitors also normal Continues to Zyrtec and tapering dose of the steroid Follow outpatients [facility] invertebrate paleontologist as per discussed with him yesterday Follow ENT locally here (2) Hypertension Qualifiers: Hypertension type: essential hypertension Qualified Code(s): I10 - Essential (primary) hypertension Is this a current diagnosis for this admission?: Yes Plan: Consider the Norvasc 5 mg p.o. daily (3) Hyperlipidemia Qualifiers: Hyperlipidemia type: unspecified Qualified Code(s): E78.5 - Hyperlipidemia, unspecified Is this a current diagnosis for this admission?: Yes Plan: Continues to current medications (4) Impaired fasting glucose Is this a current diagnosis for this admission?: Yes Plan: Continues a sliding scale - Time Time Spent with patient: 15-24 minutes Medications reviewed and adjusted accordingly: Yes Anticipated discharge: Home Within: within 24 hours - Plan Summary Plan Summary: Currently all rehan Remains stable this afternoon we will downgrade the patient in IMCU
[2019-01-13] MEDS: FAMOTIDINE INJ/PF 20 MG/2 ML SDV IV SCH ×2 (09:51→21:30)
[2019-01-13] MEDS: ASPIRIN 81 MG TABLET, ENT COATED PO SCH (09:52)
[2019-01-13] MEDS: ENOXAPARIN SODIUM INJ 40 MG/0.4 ML DISP.SYRIN SUBCUT SCH (09:52)
[2019-01-13] MEDS: AMLODIPINE BESYLATE 5 MG TABLET PO SCH ×2 (09:52→21:29)
[2019-01-13] MEDS: CETIRIZINE 10 MG TABLET PO SCH (09:52)
[2019-01-13] MEDS: DEXAMETHASONE 4 MG TABLET PO SCH ×2 (14:28→21:29)
[2019-01-14] MEDS: LEVOTHYROXINE SODIUM 0.075 MG TABLET PO SCH (05:34)
[2019-01-14] MEDS: DEXAMETHASONE 4 MG TABLET PO SCH ×3 (05:34→22:01)
[2019-01-14 07:27] LABS: ABSOLUTE MONOCYTES (AUTO) 0.6 10^3/uL (0.1-1.4); ABSOLUTE NEUT (AUTO) 10.6 10^3/uL (1.7-8.2); BASOPHILS % (AUTO) 0.1 % (0-2); HEMATOCRIT 37.5 % (36.0-47.0); HEMOGLOBIN 12.1 g/dL (12.0-15.5); LYMPHOCYTES % (AUTO) 15.3 % (13-45); MEAN CORPUSCULAR HGB CONC 32.2 g/dL (32.0-36.0); MEAN CORPUSCULAR VOLUME 78 fl (80-97); MONOCYTES % (AUTO) 4.5 % (3-13); PLATELET COUNT 153 10^3/uL (150-450); RED BLOOD COUNT 4.82 10^6/uL (3.72-5.28); RED CELL DISTRIBUTION WIDTH 16.4 % (11.5-14.0); SEGMENTED NEUTROPHILS % (AUTO) 80.1 % (42-78); TOTAL CELLS COUNTED % (AUTO) 100 %; WHITE BLOOD COUNT 13.3 10^3/uL (4.0-10.5)
[2019-01-14 08:01] LABS: ANION GAP 5 (5-19); BLOOD UREA NITROGEN 17 mg/dL (7-20); CALCIUM 9.6 mg/dL (8.4-10.2); CARBON DIOXIDE 26 mmol/L (22-30); CHLORIDE 109 mmol/L (98-107); GLUCOSE 123 mg/dL (75-110); POTASSIUM 4.1 mmol/L (3.6-5.0); SODIUM 139.9 mmol/L (137-145)
--- NOTE | 2019-01-14 08:58 | PDOC PROGRESS REPORT ---
Subjective Progress Note for:: 01/14/19 Subjective:: Patient is feeling much better Denied any chest pain to than any shortness of the breath Denied any difficulty in swallowing Patient lip swelling is all resolved Reason For Visit: ANGIOEDEMA Physical Exam Vital Signs: Temp Pulse Resp BP Pulse Ox 97.2 F 55 L 16 153/84 H 98 01/14/19 04:11 01/14/19 07:00 01/14/19 04:11 01/14/19 04:11 01/14/19 01:10 Intake & Output 01/13/19 01/14/19 01/15/19 06:59 06:59 06:59 Intake Total 366 Output Total 1820 1200 Balance -1454 -1200 Weight 96 kg 95.2 kg General appearance: PRESENT: no acute distress, well-developed, well-nourished Head exam: PRESENT: atraumatic, normocephalic Eye exam: PRESENT: conjunctiva pink, EOMI, PERRLA. ABSENT: scleral icterus Ear exam: PRESENT: normal external ear exam Mouth exam: PRESENT: moist, tongue midline Neck exam: PRESENT: full ROM. ABSENT: carotid bruit, JVD, lymphadenopathy, thyromegaly Respiratory exam: PRESENT: clear to auscultation arie Cardiovascular exam: PRESENT: RRR. ABSENT: diastolic murmur, rubs, systolic murmur Vascular exam: PRESENT: normal capillary refill GI/Abdominal exam: PRESENT: normal bowel sounds, soft. ABSENT: distended, guarding, mass, organolmegaly, rebound, tenderness Rectal exam: PRESENT: deferred Extremities exam: ABSENT: pedal edema Musculoskeletal exam: PRESENT: ambulatory Neurological exam: PRESENT: alert, awake, oriented to person, oriented to place, oriented to time, oriented to situation, CN II-XII grossly intact. ABSENT: motor sensory deficit Psychiatric exam: PRESENT: appropriate affect, normal mood. ABSENT: homicidal ideation, suicidal ideation Skin exam: PRESENT: dry, intact, warm. ABSENT: cyanosis, rash Results Laboratory Results: 01/14/19 06:59 01/14/19 06:59 01/14/19 01/14/19 06:59 06:59 WBC 13.3 H RBC 4.82 Hgb 12.1 Hct 37.5 MCV 78 L MCH 25.0 L MCHC 32.2 RDW 16.4 H Plt Count 153 Seg Neutrophils % 80.1 H Lymphocytes % 15.3 Monocytes % 4.5 Eosinophils % 0.0 Basophils % 0.1 Absolute Neutrophils 10.6 H Absolute Lymphocytes 2.0 Absolute Monocytes 0.6 Absolute Eosinophils 0.0 Absolute Basophils 0.0 Sodium 139.9 Potassium 4.1 Chloride 109 H Carbon Dioxide 26 Anion Gap 5 BUN 17 Creatinine 0.76 Est GFR ( Amer) > 60 Est GFR (Non-Af Amer) > 60 Glucose 123 H Calcium 9.6 Impressions: Soft Tissue Neck CT 01/09/19 12:37 IMPRESSION: NO SIGNIFICANT FINDING IN THE SOFT TISSUES OF THE NECK. Assessment & Plan - Diagnosis (1) Angioedema Qualifiers: Encounter type: initial encounter Qualified Code(s): T78.3XXA - Angioneurotic edema, initial encounter Is this a current diagnosis for this admission?: Yes Plan: Currently all resolved (2) Hypertension Qualifiers: Hypertension type: essential hypertension Qualified Code(s): I10 - Essential (primary) hypertension Is this a current diagnosis for this admission?: Yes Plan: Consider the Norvasc 5 mg p.o. daily (3) Hyperlipidemia Qualifiers: Hyperlipidemia type: unspecified Qualified Code(s): E78.5 - Hyperlipidemia, unspecified Is this a current diagnosis for this admission?: Yes Plan: Continues to current medications (4) Impaired fasting glucose Is this a current diagnosis for this admission?: Yes Plan: Continues a sliding scale - Time Time Spent with patient: 15-24 minutes Medications reviewed and adjusted accordingly: Yes Anticipated discharge: Home Within: within 24 hours - Plan Summary Plan Summary: If the patient's remained stable with the oral medications we will discharge with a tapering dose of the steroid 20 mg Zyrtec as per discussed with the michaeal rgist
[2019-01-14] MEDS: INSULIN LISPRO 100 UNIT/ML 3 ML VIAL SUBCUT SCH ×4 (08:59→22:01)
[2019-01-14] MEDS: FAMOTIDINE INJ/PF 20 MG/2 ML SDV IV SCH ×2 (09:10→22:00)
[2019-01-14] MEDS: ASPIRIN 81 MG TABLET, ENT COATED PO SCH (09:11)
[2019-01-14] MEDS: ENOXAPARIN SODIUM INJ 40 MG/0.4 ML DISP.SYRIN SUBCUT SCH (09:11)
[2019-01-14] MEDS: AMLODIPINE BESYLATE 5 MG TABLET PO SCH ×2 (09:11→22:00)
[2019-01-14] MEDS: CETIRIZINE 10 MG TABLET PO SCH (09:11)
[2019-01-14] MEDS ORDERED: MAG HYDROX/AL HYDROX/SIMETH SUSP 30 ML UDCUP PO PRN (15:16)
[2019-01-15] MEDS: LEVOTHYROXINE SODIUM 0.075 MG TABLET PO SCH (05:14)
[2019-01-15] MEDS: DEXAMETHASONE 4 MG TABLET PO SCH (05:14)
[2019-01-15 07:44] LABS: ANION GAP 5 (5-19); BLOOD UREA NITROGEN 21 mg/dL (7-20); CALCIUM 9.3 mg/dL (8.4-10.2); CARBON DIOXIDE 24 mmol/L (22-30); CHLORIDE 109 mmol/L (98-107); GLUCOSE 109 mg/dL (75-110); POTASSIUM 4.5 mmol/L (3.6-5.0); SODIUM 138.4 mmol/L (137-145)
[2019-01-15] MEDS: CETIRIZINE 10 MG TABLET PO SCH (09:45)
[2019-01-15] MEDS: INSULIN LISPRO 100 UNIT/ML 3 ML VIAL SUBCUT SCH (09:45)
[2019-01-15] MEDS: FAMOTIDINE INJ/PF 20 MG/2 ML SDV IV SCH (09:46)
[2019-01-15] MEDS: ENOXAPARIN SODIUM INJ 40 MG/0.4 ML DISP.SYRIN SUBCUT SCH (09:46)
[2019-01-15] MEDS: ASPIRIN 81 MG TABLET, ENT COATED PO SCH (09:46)
[2019-01-15] MEDS: AMLODIPINE BESYLATE 5 MG TABLET PO SCH (09:46)
[2019-01-15 09:50] VITALS: BP 123/70
--- NOTE | 2019-01-15 10:43 | PDOC DISCHARGE SUMMARY ---
General - Admit/Disc Date/PCP Admission Date/Primary Care Provider: 01/09/19 13:02 LOVE PUCKETT MD Discharge Date: 01/15/19 - Discharge Diagnosis (1) Angioedema Is this a current diagnosis for this admission?: Yes Summary: Unclear etiology Patient had lower lip swelling almost discharge happened in the right upper lip swelling As per discussed with the [facility] gastroenterology professor treated with the steroid high-dose Zyrtec's and suggest to continues the 20 mg Zyrtec and Pepcid and tapering dose of the steroid on discharge and follow outpatients Not sure bradykinin versus timing because patient was treated with the steroid and FFP Patient is currently doing well Also given EpiPen in case of the patient develop any further issues use it and called the EMS (2) Hypertension Is this a current diagnosis for this admission?: Yes Summary: To Norvasc (3) Hyperlipidemia Is this a current diagnosis for this admission?: Yes (4) Impaired fasting glucose Is this a current diagnosis for this admission?: Yes Summary: Clear all stable - Additional Information Resuscitation Status: Full Code Discharge Diet: Regular Discharge Activity: Activity As Tolerated Prescriptions: Amlodipine Besylate [Norvasc 5 mg Tablet] 2.5 mg PO Q12 #60 tablet Cetirizine HCl [Zyrtec 10 mg Tablet] 20 mg PO DAILY #60 tablet Dexamethasone [Decadron 4 mg Tablet] 2 mg PO Q8 #60 tablet Epinephrine [Epipen 2-Mathew] 0.3 mg IJ ONCE PRN #2 auto.injct PRN Reason: Famotidine [Pepcid 20 mg Tablet] 20 mg PO BID #60 tablet Home Medications: Levothyroxine Sodium [Synthroid] 75 mcg PO SUMOTUWETHFR@0601/09/14 Aspirin [Ecotrin] 81 mg PO DAILY 09/09/14 Levothyroxine Sodium [Synthroid 0.075 mg Tablet] 37.5 mcg PO SA@0600 01/09/19 Amlodipine Besylate [Norvasc 5 mg Tablet] 2.5 mg PO Q12 #60 tablet 01/12/19 Epinephrine [Epipen 2-Mathew] 0.3 mg IJ ONCE PRN #2 auto.injct 01/12/19 Famotidine [Pepcid 20 mg Tablet] 20 mg PO BID #60 tablet 01/12/19 Cetirizine HCl [Zyrtec 10 mg Tablet] 20 mg PO DAILY #60 tablet 01/15/19 Dexamethasone [Decadron 4 mg Tablet] 2 mg PO Q8 #60 tablet 01/15/19 History of Present Illness History of Present Illness: DULCE CRAWLEY is a 73 year old female This is a 73-year-old female with a history of the hyperlipidemia history of the hypothyroidism status post surgery history of hypertension's with a history of the angioedema in the past due to the lisinopril was off the lisinopril from several years came to the emergency department with the lower lip swelling According the patient she was fine yesterday working in the yard no problems this morning when the patient's workup start seeing some swelling in the lips do not remember any insect bites does not remember any new medications no new foods In the emergency departments patient's lip swelling is getting more worse patient received the IV Solu-Medrol received FFP and received IV Pepcid Patient also given Decadron per ENT instructions Patient when I saw it feel better still have a swelling and feel on the face inside also Patient is denied any difficulty in breathing Patient CT of the neck is negative for any other acute obstructions or any findings At this point decided to patient's in a close monitoring units for the next 24 hours to any further deterioration or any respiratory distressed Patient's already put on IV Solu-Medrol IV Pepcid's IV fluids Patient is denied any chest pain to than any shortness of the breath Hospital Course Hospital Course: This is a 73-year-old female present for the lower lip swelling diagnosed with angioedema patient was treated with the FFP and a steroid and antihistamine in the emergency department Patient's response very well with that kept in the ICU for 24 hours stepdown to the telemetry bed The patient was seen by the ENT did a laryngoscope was all stable suggest to follow outpatients and continues the tapering dose of the steroid Patient is almost ready to discharge and patients develop right upper lip swelling Patient was treated again with the all the medications as able respond very well Discussed with the gastroenterology professor at [facility] suggested that patient should continue the Zyrtec 20 mg Pepcid and tapering steroid and follow-up with him as outpatient Patient's currently doing well patient C1 inhibitor is all normal Patient having no real etiology could be idiopathic angioedema Patient's at this point doing well Very extensive discussion with the patient and the family regarding the patient's current conditions all precautions also given EpiPen Physical Exam Vital Signs: Temp Pulse Resp BP Pulse Ox 98.8 F 57 L 16 123/70 97 01/15/19 09:49 01/15/19 09:49 01/15/19 09:49 01/15/19 09:49 01/15/19 09:49 Intake & Output 01/14/19 01/15/19 01/16/19 06:59 06:59 06:59 Intake Total 1525 Output Total 1200 Balance -1200 1525 Weight 95.2 kg 95.8 kg General appearance: PRESENT: no acute distress, well-developed, well-nourished Head exam: PRESENT: atraumatic, normocephalic Eye exam: PRESENT: conjunctiva pink, EOMI, PERRLA. ABSENT: scleral icterus Ear exam: PRESENT: normal external ear exam Mouth exam: PRESENT: moist, tongue midline Neck exam: PRESENT: full ROM. ABSENT: carotid bruit, JVD, lymphadenopathy, thyromegaly Respiratory exam: PRESENT: clear to auscultation arie Cardiovascular exam: PRESENT: RRR. ABSENT: diastolic murmur, rubs, systolic murmur Vascular exam: PRESENT: normal capillary refill GI/Abdominal exam: PRESENT: normal bowel sounds, soft. ABSENT: distended, guarding, mass, organolmegaly, rebound, tenderness Rectal exam: PRESENT: deferred Extremities exam: ABSENT: pedal edema Musculoskeletal exam: PRESENT: ambulatory Neurological exam: PRESENT: alert, awake, oriented to person, oriented to place, oriented to time, oriented to situation, CN II-XII grossly intact. ABSENT: motor sensory deficit Psychiatric exam: PRESENT: appropriate affect, normal mood. ABSENT: homicidal ideation, suicidal ideation Skin exam: PRESENT: dry, intact, warm. ABSENT: cyanosis, rash Results Laboratory Results: 01/14/19 06:59 01/15/19 06:20 01/15/19 06:20 Sodium 138.4 Potassium 4.5 Chloride 109 H Carbon Dioxide 24 Anion Gap 5 BUN 21 H Creatinine 0.83 Est GFR ( Amer) > 60 Est GFR (Non-Af Amer) > 60 Glucose 109 Calcium 9.3 Impressions: Soft Tissue Neck CT 01/09/19 12:37 IMPRESSION: NO SIGNIFICANT FINDING IN THE SOFT TISSUES OF THE NECK. Qualifiers - * PATIENT BEING DISCHARGED WITH ANY OF THE FOLLOWING DIAGNOSIS: No VTE patient discharged on overlapping Therapy?: Yes Plan Time Spent: Greater than 30 Minutes - Following office 1 week We will make an appointment to see the [facility] gastroenterology professor
== END 2019-01-15 13:34 | disposition home or self-care (01) | DRG 916 ==
LOC: ER 09:01 → EH 13:02 → ICU 20:57 → 4N 01-11 13:54 → ICU 01-12 16:56 → 3W 01-13 20:44
PROVIDERS: ADMIT Family Medicine; ATTEND Family Medicine
PROC: 30233K1 Transfusion of Nonautologous Frozen Plasma into Peripheral Vein, Percutaneous Approach (ICD-10-PCS; principal; 2019-01-09)
PROC: 30233K1 Transfusion of Nonautologous Frozen Plasma into Peripheral Vein, Percutaneous Approach (ICD-10-PCS; 2019-01-12)
DX: T78.3XXA Angioneurotic edema, initial encounter (principal); E78.5 Hyperlipidemia, unspecified; E89.0 Postprocedural hypothyroidism; R73.01 Impaired fasting glucose; I10 Essential (primary) hypertension; Z90.710 Acquired absence of both cervix and uterus; Z88.0 Allergy status to penicillin; Z88.8 Allergy status to other drugs, medicaments and biological substances; Z79.899 Other long term (current) drug therapy; Z88.1 Allergy status to other antibiotic agents
CPT/HCPCS: 36415; 36430; 70491; 80048; 80053; 82962; 85025; 86160; 86161; 86376; 86900; 86901; 96374; 96375; 99291; J1100; J1200; J1650; J1815; J2920; J2930; J3490; J7030; J7512; P9017; S0028

== ENCOUNTER 2019-01-24 12:56 | Observation (INO) | payer MEDICARE ==
[2019-01-24] MEDS ORDERED: METHYLPREDNISOLONE INJ 125 MG/2 ML SDV IV ONE (13:06)
[2019-01-24] MEDS ORDERED: EPINEPHRINE INJ/PF 1 MG/1 ML AMPULE SUBCUT ONE (13:06)
[2019-01-24] MEDS ORDERED: FAMOTIDINE INJ/PF 20 MG/2 ML SDV IV ONE (13:11)
--- NOTE | 2019-01-24 14:37 | ER Document Report ---
ED Allergic Reaction - General Chief Complaint: Allergic Reaction Stated Complaint: POSSIBLE ALLERGIC REACTION Time Seen by Provider: 01/24/19 13:10 Primary Care Provider: LOVE PUCKETT MD [Primary Care Provider] - Follow up as needed Notes: Patient is being evaluated for possible allergic reaction and angioedema. She said that she got up this morning and took her medications and ate a banana and return to bed. She then noticed her face began swelling about 10:30 AM. She followed that with some shortness of breath. She had an EpiPen which she attempted to inject but self injected herself in her left thumb. After that, she began to feel hot and short of breath and EMS was called. On the way here, they gave her 50 mg of Benadryl IM but no other medications because they could not get an IV started. Patient is primarily complaining of swelling of her face and tongue, and denies a rash or itching and does not have much shortness of breath. Patient was just hospitalized here for allergic reaction and angioedema. After a one-week stay, she was discharged on January 15. Her discharge medications incl uded Pepcid and Zyrtec and dexamethasone. She ran out of the dexamethasone 2 days ago. She is scheduled to see an film mounter at [place] on February 12. Patient is also complaining of some chest pain in the mid substernal chest region ever since she injected the epinephrine into her thumb. TRAVEL OUTSIDE OF THE [place] IN LAST 30 DAYS: No - Related Data Allergies/Adverse Reactions: lisinopril [Lisinopril] Allergy (Severe, Verified 01/10/19 08:40) Angioneurotic Edema penicillin G [Penicillin G] Allergy (Unknown, Verified 10/21/15 08:17) had as child levofloxacin [From Levaquin] Adverse Reaction (Severe, Verified 10/21/15 08:17) Swelling of Throat Past Medical History - Social History Smoking Status: Unknown if Ever Smoked Cigarette use (# per day): No Family History: Reviewed & Not Pertinent - Past Medical History Cardiac Medical History: Reports: Hx Hypercholesterolemia, Hx Hypertension Denies: Hx Coronary Artery Disease, Hx Heart Attack Neurological Medical History: Denies: Hx Cerebrovascular Accident, Hx Seizures Musculoskeletal Medical History: Denies Hx Arthritis Past Surgical History: Reports: Hx Breast Surgery - Lump removed from breast in 2010, Hx Hysterectomy, Hx Thyroid Surgery - Left lobe of thryroid removed, Hx TonsillectomyComment Only: Hx Orthopedic Surgery - Feet - Immunizations Hx Diphtheria, Pertussis, Tetanus Vaccination: No Hx Pneumococcal Vaccination: 10/01/12 Review of Systems - Review of Systems Notes: REVIEW OF SYSTEMS: CONSTITUTIONAL : Denies fever. EENT: Denies eye, ear, nose pain or other symptoms. See HPI. CARDIOVASCULAR: See HPI. RESPIRATORY: Denies cough, chest congestion, or shortness of breath. GASTROINTESTINAL: Denies abdominal pain or nausea, vomiting, or diarrhea. GENITOURINARY: Denies difficulty or painful urinating, urinary frequency, blood in urine. MUSCULOSKELETAL: Denies back or neck pain. Denies joint pain or swelling. SKIN: Denies rash or skin lesions. NEUROLOGICAL: Denies LOC or altered mental status. Denies headache. Denies sensory loss or motor deficits. ALL OTHER SYSTEMS REVIEWED AND NEGATIVE. Physical Exam - Vital signs Vitals: Resp BP Pulse Ox 17 126/86 H 97 01/24/19 12:57 01/24/19 12:57 01/24/19 12:57 PHYSICAL EXAMINATION: GENERAL: Well-appearing, in no acute distress. Vital signs are all normal. HEAD: Atraumatic, normocephalic. EYES: Pupils equal round and reactive to light, extraocular movements intact. ENT: oropharynx clear without exudates. Moist mucous membranes. I do not see any soft tissue swelling intraorally. No mucous membrane edema. Tongue appears to be normal size. Voice does not seem to be affected at all. NECK: Normal range of motion, supple. LUNGS: Breath sounds clear and equal bilaterally. HEART: Regular rate and rhythm without murmurs. ABDOMEN: Soft, nontender. No guarding or rebound. No masses. BACK: No tenderness throughout entire back. EXTREMITIES: Normal range of motion without pain. NEUROLOGICAL: Normal speech, normal gait. Normal sensory, motor, and reflex exams. Awake, alert, and oriented x3. Cranial nerves normal. PSYCH: Normal mood, normal affect. SKIN: Warm, dry, no rashes. Course - Re-evaluation Re-evalutation: 01/24/19 14:37 Patient says she is feeling better. Thinks her swelling has decreased. Not having any difficulty breathing. Is complaining of persistent substernal pain. Does not have a rash and is not itching. 01/24/19 18:38 After evaluating the patient and talking with Dr. Puckett and with a completely normal work-up, we felt the patient to be discharged on a new prescription for steroids I wrote up her discharge instructions and prescription and talked with the patient and family who agreed that she would be going home to keep her appointment to follow-up with immunology in [place] February 12. When the patient was about to have her IV removed and go home, the patient and family expressed concerns about patient's continued facial swelling, swelling which I cannot appreciate. I do not see any asymmetric appearance to either side or any significant swelling of intraoral structures or tone. Still, I was trying to get Dr. Puckett back when he was off duty and Dr. Hussein was taking call. I explained the situation to him and he agreed to put the patient on observation tonight. - Vital Signs Vital signs: Temp Pulse Resp BP Pulse Ox 18 146/106 H 90 L 01/24/19 18:02 01/24/19 18:02 01/24/19 18:02 - Laboratory Result Diagrams: 01/24/19 13:05 01/24/19 13:05 Laboratory results interpreted by me: 01/24/19 01/24/19 13:05 13:05 WBC 11.4 H MCV 78 L MCH 25.2 L RDW 16.5 H Plt Count 148 L Lymphocytes % 50.3 H Absolute Lymphocytes 5.7 H BUN 21 H Est GFR (Non-Af Amer) 53 L - EKG Interpretation by Vt EKG shows normal: Sinus rhythm Rate: Normal Rhythm: NSR Additional EKG results interpreted by ak: 01/24/19 19:01 EKG is normal. Discharge - Discharge Clinical Impression: Allergic reaction Condition: Stable Disposition: ADMITTED OBSERVATION Admitting Provider: Keen[facility] Unit Admitted: Medical Floor Additional Instructions: ACUTE ALLERGIC REACTION: Your symptoms are due to an allergic reaction. Allergy can cause hives, swelling of the hands, feet, and face, hoarseness, and difficulty swallowing or breathing. It may be due to exposure to medication, animal dander, foods, infection, or insect bites. Medication is a common cause, even when prior use of this same medication caused no problems. Acute treatment may include adrenalin and antihistamines. Usually, the specific allergic agent can't be identified unless repeated episodes occur. Home treatment includes the following: (1) Stop any suspicious medications. This will be discussed with you. (2) Oral antihistamines for the next four to five days. Example, diphenhydramine (Benadryl) every four hours. (3) You may also use cimetidine (Tagamet), ranitidine (Zantac), or famotidine (Pepcid) every four hours if diphenhydramine is not controlling itching and hives. (4) Avoid aspirin until the hives completely disappear. (5) Avoid hot baths or showers until the hives are completely gone. Call the doctor if faintness, difficulty swallowing, tightness in the chest, or wheezing occurs. EPINEPHRINE: An injection of epinephrine (also called adrenalin) is used to treat allergic reactions, asthma, and some other medical conditions. It is a stimulant medication that consticts blood vessels, relaxes smooth muscles such as in the bronchioles of the lung, elevates blood pressure, and increases heart rate. It can temporarily make you feel very nervous and shakey, but it's affects last only a short time, about 15 to 30 minutes at most. STEROID MEDICATION INJECTION: You have been given an injection of medicine of the cortisone/steroid class. This medication is used to control inflammation or allergy. It is often continued as a pill for a short period of time, until the acute process subs ides. There are usually no side effects from short-term use of cortisone-like medications. Some persons feel an increased sense of well-being and are not sleepy at bedtime. Long-term use of cortisone medications is best avoided, unless required for a severe condition. If your condition does not remit, or relapses after the course of corticosteroid medication, you should consult your physician. STEROID MEDICATION: You have been given a medicine of the cortisone/steroid class. This medication is used to control inflammation or allergy. It is usually only given for a short period of time, until the acute process subsides. There are usually no side effects from short-term use of cortisone-like medications. Some persons feel an increased sense of well-being and are not sl eepy at bedtime. Long-term use of cortisone medications is best avoided, unless required for a severe condition. If your condition does not remit, or relapses after the course of corticosteroid medication, you should consult your physician. ACID-SUPPRESSING MEDICATION: You have a prescription for medicine which reduces the stomach's secretion of acid. Examples include Zantac, Tagament, and Pepcid. These drugs are often used to allow healing of ulcers or esophagitis. They may be needed to prevent recurrence of ulcers in some patients, or to prevent damage from acid reflux in the esophagus. Take all medication as prescribed, even after the pain is gone. Regular antacids may be added as needed if you have symptoms while taking this medicine. These medications sometimes are prescribed for allergic reactions because they have anti-histaminic effects and relieve the rash and itching of the reaction. There are usually no side effects from this medication. But, in rare cases and particularly in the elderly, serious problems can occur. Contact your doctor if there is fever, rash, hallucinations, confusion, or unusual bruising. Contact your doctor at once if you develop lightheadedness, black or bloody stool, or bloody vomitus. ANTIHISTAMINES: An antihistamine has been given and/or prescribed to control your symptoms. Antihistamines are used for many reasons, including itching, watering eyes, runny nose, allergic swelling, hives, and insect stings. Antihistamines may cause drowsiness, especially with the first dose. Do not operate machinery or drive while under the effects of the medication. Other common side effects include dry mouth and eyes. In older persons, antihistamines can occasionally cause urinary retention, constipation, and trouble focusing the eyes. Do not combine the medication with alcohol, or with any other medication without talking to your doctor. USE OF DIPHENHYDRAMINE: The use of diphenhydramine (Benadryl) has been recommended to control allergic symptoms. The 25 mg strength is available over- the-counter, as well as the elixir. This antihistamine is used for many symptoms. It's useful for itching, watering eyes and nose, allergic swelling, hives, and insect stings. The medication can be repeated four times daily. Age Elixir (12.5 mg/tsp) 25 mg pill 2-3 yr 1/2 tsp 4-8 yr 1 tsp 9-14 yr 2 tsp one tab adult 1-2 tabs Antihistamines may cause drowsiness, especially with the first dose. Do not operate machinery or drive while under the effects of the medication. Do not combine the medication with alcohol, or with any other medication without t alking to your doctor. Continue your other medications as before. I am writing a prescription for another week of prednisone to take starting tomorrow with 6 tablets tomorrow and then 1 less tablet each day after the. I spoke with Dr. Puckett and he will recheck you next week if you are having any symptoms. Keep your appointment with the store receiving clerk that [place] on February 12. FOLLOW-UP CARE: If you have been referred to a physician for follow-up care, call the physicians office for an appointment as you were instructed or within the next two days. If you experience worsening or a significant change in your symptoms, notify the physician immediately or return to the Emergency Department at any time for re-evaluation. See my note under "course". Patient and family expressed concern about being discharged home and I arranged to have Dr. Hussein admit the patient for observation overnight. Discharge instructions and prescription were canceled. Prescriptions: Prednisone [Deltasone 10 mg Tablet] 10 mg PO ASDIR PRN #21 tablet PRN Reason: Referrals: LOVE PUCKETT MD [Primary Care Provider] - Follow up as needed
[2019-01-24 14:44] LABS: ABSOLUTE EOSINOPHILS # (AUTO) 0.1 10^3/uL (0.0-0.6); ABSOLUTE LYMPHOCYTES (AUTO) 5.7 10^3/uL (0.5-4.7); ABSOLUTE MONOCYTES (AUTO) 0.6 10^3/uL (0.1-1.4); ABSOLUTE NEUT (AUTO) 4.9 10^3/uL (1.7-8.2); BASOPHILS % (AUTO) 0.1 % (0-2); EOSINOPHILS % (AUTO) 1.1 % (0-6); HEMATOCRIT 39.3 % (36.0-47.0); HEMOGLOBIN 12.7 g/dL (12.0-15.5); LYMPHOCYTES % (AUTO) 50.3 % (13-45); MEAN CORPUSCULAR HEMOGLOBIN 25.2 pg (27.0-33.4); MEAN CORPUSCULAR HGB CONC 32.3 g/dL (32.0-36.0); MEAN CORPUSCULAR VOLUME 78 fl (80-97); MONOCYTES % (AUTO) 5.6 % (3-13); PLATELET COUNT 148 10^3/uL (150-450); RED BLOOD COUNT 5.04 10^6/uL (3.72-5.28); RED CELL DISTRIBUTION WIDTH 16.5 % (11.5-14.0); SEGMENTED NEUTROPHILS % (AUTO) 42.9 % (42-78); TOTAL CELLS COUNTED % (AUTO) 100 %; WHITE BLOOD COUNT 11.4 10^3/uL (4.0-10.5)
[2019-01-24 14:56] LABS: ALANINE AMINOTRANSFERASE 26 U/L (9-52); ALBUMIN 3.5 g/dL (3.5-5.0); ALKALINE PHOSPHATASE 58 U/L (38-126); ANION GAP 11 (5-19); ASPARTATE AMINO TRANSFERASE 19 U/L (14-36); BILIRUBIN,DIRECT 0.1 mg/dL (0.0-0.4); BILIRUBIN,TOTAL 0.3 mg/dL (0.2-1.3); BLOOD UREA NITROGEN 21 mg/dL (7-20); CALCIUM 9.5 mg/dL (8.4-10.2); CARBON DIOXIDE 24 mmol/L (22-30); CHLORIDE 106 mmol/L (98-107); GLUCOSE 104 mg/dL (75-110); POTASSIUM 4.3 mmol/L (3.6-5.0); SODIUM 141.2 mmol/L (137-145); TOTAL PROTEIN 6.6 g/dL (6.3-8.2)
[2019-01-24 15:06] LABS: CREATINE KINASE MB 1.44 ng/mL (<4.55)
[2019-01-24 15:15] LABS: TROPONIN I 0.072 ng/mL
--- NOTE | 2019-01-24 20:53 | EKG REPORT ---
SEVERITY:- BORDERLINE ECG - SINUS RHYTHM PROBABLE LEFT ATRIAL ABNORMALITY : Confirmed by: Leonel Hdez MD 24-Jan-2019 20:52:25
[2019-01-24] MEDS ORDERED: (PENDING PHARMACY ID) (Epinephrine [Epipen 2-Pak] 0.3 MG) INJ PRN (22:19)
[2019-01-24] MEDS ORDERED: DIPHENHYDRAMINE HCL 50 MG/ML VIAL IV PRN (22:21)
[2019-01-24] MEDS ORDERED: DEXAMETHASONE 2 MG PO SCH (22:30)
[2019-01-25] MEDS ORDERED: LEVOTHYROXINE SODIUM 0.075 MG TABLET PO SCH (06:00)
[2019-01-25] MEDS ORDERED: CETIRIZINE 10 MG TABLET PO SCH (10:00)
[2019-01-25] MEDS ORDERED: AMLODIPINE BESYLATE 5 MG TABLET PO SCH (10:00)
[2019-01-25] MEDS ORDERED: ATORVASTATIN CALCIUM 20 MG TABLET PO SCH (10:00)
[2019-01-25] MEDS ORDERED: ASPIRIN 81 MG TABLET, ENT COATED PO SCH (10:00)
[2019-01-25] MEDS ORDERED: (PENDING PHARMACY ID) (Pitavastatin Calcium [Livalo] 4 MG) PO SCH (10:00)
[2019-01-25] MEDS ORDERED: FAMOTIDINE 20 MG TABLET PO SCH (10:00)
--- NOTE | 2019-01-25 16:22 | RADIOLOGY REPORT (SQ) ---
EXAM DESCRIPTION: VENOUS BILATERAL LOWER COMPLETED DATE/TIME: 01/25/2019 3:49 pm REASON FOR STUDY: calf pain/swelling R/O DVT COMPARISON: None. TECHNIQUE: Dynamic and static shanks scale and color images acquired of both lower extremity venous sy stems. Selected spectral images acquired with additional compression and augmentation maneuvers. Imag es stored on PACS. LIMITATIONS: None. FINDINGS: RIGHT LEG COMMON FEMORAL AND FEMORAL: Normal phasicity, compression and augmentation. No visualized echogenic m aterial on shanks scale. No defects on color images. POPLITEAL: Normal compression and augmentation. No visualized echogenic material on shanks scale. No de fects on color images. CALF VESSELS: Normal compression and augmentation. No visualized echogenic material on shanks scale. No defects on color image. GSV AND SSV: Normal compression. No visualized echogenic material on shanks scale. No defects on color images. ANY DEEP VENOUS INSUFFICIENCY: Not evaluated. ANY EVIDENCE OF POPLITEAL CYST: No. OTHER: No other significant finding. LEFT LEG COMMON FEMORAL AND FEMORAL: Normal phasicity, compression and augmentation. No visualized echogenic m aterial on shanks scale. No defects on color images. POPLITEAL: Normal compression and augmentation. No visualized echogenic material on shanks scale. No de fects on color images. CALF VESSELS: Normal compression and augmentation. No visualized echogenic material on shanks scale. No defects on color images. GSV AND SSV: Normal compression. No visualized echogenic material on shanks scale. No defects on color images. ANY DEEP VENOUS INSUFFICIENCY: Not evaluated. ANY EVIDENCE POPLITEAL CYST: No. OTHER: No other significant finding. IMPRESSION: NO EVIDENCE DVT OR SVT IN EITHER LEG. TECHNICAL DOCUMENTATION: JOB ID: [id number] [employer]- All Rights Reserved Reading location - IP/workstation name: [email or web address]
--- NOTE | 2019-01-25 17:02 | PDOC H&P ---
History of Present Illness Admission Date/PCP: 01/24/19 19:28 LOVE PUCKETT MD History of Present Illness: DULCE CRAWLEY is a 73 year old female, She came to the emergency room last night, I discussed this case with Dr. Troy Galeana, ED physician, the history was that when she woke up yesterday morning after she ate a banana, she took her medication, went back to bed when she woke up she noticed facial swelling followed by shortness of breath she gave herself or attempted to give herself EpiPen but she ended up injecting her thumb. She felt hot and short of breath she then called EMS, she was transferred from home to the emergency room for evaluation. She apparently was hospitalized for angioedema on January 15, 2019 she was discharged on Pepcid and Zyrtec and also dexamethasone. She was evaluated in the emergency room the evaluation was completely normal, she was to be discharged on a new dexamethasone prescription both the patient and the family expressed concern that she has facial swelling which was not apparent to the provider in the ER but because of the concern the ER physician felt patient needed to be observed for 24 hours. I saw her on the floor this morning, I did not see any angioedema, I think she is very anxious, she also complained of pain in the calf, she says she felt as if she was running, I did a stat venous Doppler this came back negative for DVT or any pathology Past Medical History Cardiac Medical History: Reports: Hyperlipidema, Hypertension Musculoskeltal Medical History: Denies: Arthritis Hematology: Reports: Anemia Past Surgical History Past Surgical History: Reports: Hysterectomy, Tonsillectomy Comment Only: Orthopedic Surgery - Feet Social History Smoking Status: Unknown if Ever Smoked Frequency of Alcohol Use: None Hx Recreational Drug Use: No Drugs: None Hx Prescription Drug Abuse: No Family History Family History: Reviewed & Not Pertinent Parental Family History Reviewed: Yes Children Family History Reviewed: Yes Sibling(s) Family History Reviewed.: Yes Medication/Allergy Home Medications: RX: Amlodipine Besylate [Norvasc 2.5 mg Tablet] 2.5 mg PO DAILY 01/24/19 RX: Aspirin [Adult Low Dose Aspirin EC] 81 mg PO DAILY 01/24/19 RX: Cetirizine HCl [Zyrtec 10 mg Tablet] 20 mg PO DAILY 01/24/19 RX: Dexamethasone 2 mg PO [id number] MDD TOOK LAST DOSE 01/22/19 01/24/19 RX: Epinephrine [Epipen 2-Mathew] 0.3 mg INJ .ASDIR PRN 01/24/19 RX: Famotidine [Pepcid 20 mg Tablet] 20 mg PO BID 01/24/19 RX: Levothyroxine Sodium [Synthroid 0.075 mg Tablet] 0.0375 mg PO FULTON@0600 01/24/19 RX: Levothyroxine Sodium [Synthroid 0.075 mg Tablet] 0.075 mg PO MOTUWETHSA@0600 01/24/19 RX: Pitavastatin Calcium [Livalo] 4 mg PO DAILY 01/24/19 Allergies/Adverse Reactions: lisinopril [Lisinopril] Allergy (Severe, Verified 01/10/19 08:40) Angioneurotic Edema banana Allergy (Unknown, Verified 01/25/19 00:22) Facial swelling penicillin G [Penicillin G] Allergy (Unknown, Verified 10/21/15 08:17) had as child levofloxacin [From Levaquin] Adverse Reaction (Severe, Verified 10/21/15 08:17) Swelling of Throat Review of Systems Constitutional: ABSENT: chills, fever(s), headache(s), weight gain, weight loss Eyes: ABSENT: visual disturbances Ears: ABSENT: hearing changes Cardiovascular: ABSENT: chest pain, dyspnea on exertion, edema, orthropnea, pal pitations Respiratory: ABSENT: cough, hemoptysis Gastrointestinal: ABSENT: abdominal pain, constipation, diarrhea, hematemesis, hematochezia, nausea, vomiting Genitourinary: ABSENT: dysuria, hematuria Musculoskeletal: ABSENT: joint swelling Integumentary: ABSENT: rash, wounds Neurological: ABSENT: abnormal gait, abnormal speech, confusion, dizziness, focal weakness, syncope Psychiatric: ABSENT: anxiety, depression, homidical ideation, suicidal ideation Endocrine: ABSENT: cold intolerance, heat intolerance, menstrual abnormalities, polydipsia, polyuria Hematologic/Lymphatic: ABSENT: easy bleeding, easy bruising, lymphadenopathy Physical Exam Vital Signs: Temp Pulse Resp BP Pulse Ox 98.1 F 65 16 122/61 100 01/25/19 12:41 01/25/19 12:41 01/25/19 12:41 01/25/19 12:41 01/25/19 12:41 Intake & Output 01/24/19 01/25/19 01/26/19 06:59 06:59 06:59 Weight 97.9 kg General appearance: PRESENT: no acute distress, well-developed, well-nourished Head exam: PRESENT: atraumatic, normocephalic Eye exam: PRESENT: conjunctiva pink, EOMI, PERRLA Ear exam: PRESENT: normal external ear exam Mouth exam: PRESENT: moist, tongue midline Neck exam: PRESENT: full ROM Respiratory exam: PRESENT: clear to auscultation arie Cardiovascular exam: PRESENT: RRR, +S1, +S2 Pulses: PRESENT: normal dorsalis pedis pul, +2 pedal pulses bilateral Vascular exam: PRESENT: normal capillary refill GI/Abdominal exam: PRESENT: normal bowel sounds, soft Rectal exam: PRESENT: deferred Neurological exam: PRESENT: alert, awake, oriented to person, oriented to place, oriented to time, oriented to situation, CN II-XII grossly intact Psychiatric exam: PRESENT: appropriate affect, normal mood Skin exam: PRESENT: dry, intact, warm Results Laboratory Results: 01/24/19 13:05 01/24/19 13:05 01/24/19 13:05 CK-MB (CK-2) 1.44 Troponin I 0.072 Impressions: Venous Doppler Study 01/25/19 00:00 IMPRESSION: NO EVIDENCE DVT OR SVT IN EITHER LEG. Assessment & Plan - Diagnosis (1) Angioedema Qualifiers: Encounter type: initial encounter Qualified Code(s): T78.3XXA - Angioneurotic edema, initial encounter Is this a current diagnosis for this admission?: Yes
[2019-01-25 18:47] VITALS: BP 101/65
[2019-01-26] MEDS ORDERED: LEVOTHYROXINE SODIUM 0.075 MG TABLET PO SCH (06:00)
== END 2019-01-25 19:46 | disposition home or self-care (01) ==
LOC: ER 12:56 → EH 19:28 → 4N 20:49
PROVIDERS: ADMIT Internal Medicine; ATTEND Internal Medicine
DX: T78.3XXA Angioneurotic edema, initial encounter (principal); R07.2 Precordial pain; T44.5X5A Adverse effect of predominantly beta-adrenoreceptor agonists, initial encounter; Z88.8 Allergy status to other drugs, medicaments and biological substances; Z91.018 Allergy to other foods; Z88.3 Allergy status to other anti-infective agents; Z79.82 Long term (current) use of aspirin; Z79.899 Other long term (current) drug therapy
CPT/HCPCS: 93005; 99285; 96372; 96374; 96375; 36415; 82553; 85025; 80053; 84484; 93970; 93010; G0378 ×2; A9270 ×5; J1200; J0171; J2930; S0028

== ENCOUNTER 2019-02-01 09:09 | Emergency (ER) | payer MEDICARE ==
[2019-02-01] MEDS ORDERED: EPINEPHRINE INJ/PF 1 MG/1 ML AMPULE ONE (09:12)
[2019-02-01] MEDS ORDERED: METHYLPREDNISOLONE INJ 125 MG/2 ML SDV ONE (09:13)
[2019-02-01] MEDS ORDERED: FAMOTIDINE INJ/PF 20 MG/2 ML SDV IV ONE ×2 (09:13→09:33)
[2019-02-01] MEDS ORDERED: DIPHENHYDRAMINE HCL 50 MG/ML VIAL ONE (09:13)
[2019-02-01] MEDS ORDERED: EPINEPHRINE INJ/PF 1 MG/1 ML AMPULE IM ONE ×2 (09:15→09:45)
[2019-02-01] MEDS ORDERED: TRANEXAMIC ACID INJ/PF 1,000 MG/10 ML SDV IV ONE ×2 (09:15→09:18)
[2019-02-01] MEDS ORDERED: DIPHENHYDRAMINE HCL 50 MG/ML VIAL IV ONE (09:31)
[2019-02-01] MEDS ORDERED: METHYLPREDNISOLONE INJ 125 MG/2 ML SDV IV ONE (09:32)
[2019-02-01] MEDS ORDERED: NORMAL SALINE 250 ML IV PRN (09:36)
[2019-02-01] MEDS: LORAZEPAM INJ 2 MG/1 ML VIAL ONE ×2 (09:43→09:51)
[2019-02-01] MEDS ORDERED: LORAZEPAM INJ 2 MG/1 ML VIAL IV ONE (09:49)
--- NOTE | 2019-02-01 10:33 | ER Document Report ---
ED General - General Chief Complaint: Lip Swelling Stated Complaint: POSSIBLE ALLERGIC REACTION Time Seen by Provider: 02/01/19 09:39 Primary Care Provider: LOVE PUCKETT MD [Primary Care Provider] - Follow up as needed Mode of Arrival: Wheelchair Information source: Patient, Relative, [facility] Records Notes: 73-year-old female with hypertension, hyperlipidemia, anemia, recurrent angioedema presents with lip swelling that started just prior to arrival. This is the patient's third visit for angioedema in the last few weeks. She was admitted to the hospital on January 24, 2019 for similar symptoms. Patient has not taken lisinopril and a couple of years and is currently on hydralazine for her blood pressure. She denies any new medications, exposures, foods. Patient denies tongue swelling, difficulty breathing, difficulty swallowing. TRAVEL OUTSIDE OF THE [place] IN LAST 30 DAYS: No - HPI Onset: Just prior to arrival Onset/Duration: Sudden Quality of pain: No pain Severity: None Pain Level: Denies Associated symptoms: None. denies: Chest pain, Drooling, Fever, Nausea, Vomiting, Shortness of breath Exacerbated by: Denies Relieved by: Denies Similar symptoms previously: Yes Recently seen / treated by doctor: Yes - Related Data Allergies/Adverse Reactions: lisinopril [Lisinopril] Allergy (Severe, Verified 02/01/19 09:11) Angioneurotic Edema banana Allergy (Unknown, Verified 02/01/19 09:11) Facial swelling penicillin G [Penicillin G] Allergy (Unknown, Verified 02/01/19 09:11) had as child levofloxacin [From Levaquin] Adverse Reaction (Severe, Verified 02/01/19 09:11) Swelling of Throat Past Medical History - General Information source: Patient, [facility] Records - Social History Smoking Status: Never Smoker Frequency of alcohol use: None Drug Abuse: None Lives with: Family Family History: Reviewed & Not Pertinent Patient has suicidal ideation: No Patient has homicidal ideation: No - Past Medical History Cardiac Medical History: Reports: Hx Hypercholesterolemia, Hx Hypertension Denies: Hx Coronary Artery Disease, Hx Heart Attack Pulmonary Medical History: Denies: Hx Asthma, Hx Bronchitis, Hx COPD, Hx Pneumonia Neurological Medical History: Denies: Hx Cerebrovascular Accident, Hx Seizures Renal/ Medical History: Denies: Hx Peritoneal Dialysis GI Medical History: Denies: Hx Hepatitis, Hx Hiatal Hernia, Hx Ulcer Musculoskeletal Medical History: Denies Hx Arthritis Infectious Medical History: Denies: Hx Hepatitis Past Surgical History: Reports: Hx Breast Surgery - Lump removed from breast in 2011, Hx Hysterectomy, Hx Thyroid Surgery - Left lobe of thryroid removed, Hx Tonsillectomy. Denies: Hx Mastectomy, Hx Open Heart Surgery, Hx Pacemaker. Comment Only: Hx Orthopedic Surgery - Feet - Immunizations Hx Diphtheria, Pertussis, Tetanus Vaccination: No Hx Pneumococcal Vaccination: 10/01/12 Review of Systems - Review of Systems Notes: REVIEW OF SYSTEMS: CONSTITUTIONAL : Denies fever, chills, or sweats. Denies recent illness. Denies weight loss, recent hospitalizations. EENT: Denies visual changes, eye pain. Denies sore throat, oral lesions, difficulty swallowing. CARDIOVASCULAR: Denies chest pain. Denies palpitations. Denies lower extremity edema. RESPIRATORY: Denies cough. Denies shortness of breath, wheezing. GASTROINTESTINAL: Denies abdominal pain or distention. Denies nausea, vomiting, or diarrhea. Denies blood in vomitus, stools, or per rectum. Denies black, tarry stools. Denies constipation. GENITOURINARY: Denies difficulty urinating, painful urination, frequency, blood in urine, or vaginal discharge. MUSCULOSKELETAL: Denies back or neck pain or stiffness. Denies joint pain or swelling. SKIN: Denies rash, lesions or sores. HEMATOLOGIC : Denies easy bruising or bleeding. LYMPHATIC: Denies swollen glands. NEUROLOGICAL: Denies confusion or altered mental status. Denies loss of consciousness. Denies dizziness or lightheadedness. Denies headache. Denies weakness or paralysis. Denies problems difficulty with ambulation, slurred speech. Denies sensory loss, numbness, or tingling. Denies seizures. PSYCHIATRIC: Denies anxiety or stress. Denies depression, suicidal ideation, or homicidal ideation. Denies visual or auditory hallucinations. Physical Exam - Vital signs Vitals: Resp 16 02/01/19 09:17 - Notes Notes: PHYSICAL EXAMINATION: GENERAL: Mild distress HEAD: Atraumatic, normocephalic. EYES: Pupils equal round and reactive to light, extraocular movements intact, conjunctiva are normal. ENT: Nares patent, oropharynx clear without exudates. Moist mucous membranes. Significant swelling of the upper and lower lip. No tongue swelling. Airway patent. No stridor. NECK: Normal range of motion, supple without lymphadenopathy LUNGS: Breath sounds clear to auscultation bilaterally and equal. No wheezes rales or rhonchi. HEART: Regular rate and rhythm without murmurs ABDOMEN: Soft, nontender, nondistended abdomen. No guarding, no rebound. No masses appreciated. Female : deferred Musculoskeletal: Normal range of motion, no pitting or edema. No cyanosis. NEUROLOGICAL: Cranial nerves grossly intact. Normal speech, normal gait. Normal sensory, motor exams PSYCH: Normal mood, normal affect. SKIN: Warm, Dry, normal turgor, no rashes or lesions noted. Course - Re-evaluation Re-evalutation: 02/01/19 10:32 Laboratory 02/01/19 09:20 Blood Type AB POSITIVE Antibody Screen NEGATIVE Temp Pulse Resp BP Pulse Ox 98.5 F 21 H 141/99 H 96 02/01/19 10:23 02/01/19 10:24 02/01/19 10:24 02/01/19 10:24 73-year-old female presents with lip swelling that started just prior to arrival. Vital signs reviewed and within normal limits. Patient does not appear toxic or dehydrated. She is anxious and in mild distress but has a patent airway and is without tongue swelling, stridor or wheezing. Patient did receive IM epi, Benadryl, Solu-Medrol, Pepcid, FFP, TXA during her ED course. Patient has been reevaluated multiple times and the swelling has not improved but has not worsened. She is still able to swallow and denies any difficulty breathing. 02/01/19 11:34 Patient was reevaluated after 2 hours in the emergency department. She still has significant lip swelling although her upper lip appears slightly smaller. Still without difficulty breathing, swallowing and is resting comfortably. I have paged Dr. Puckett for consult. 02/01/19 11:[address] Puckett who is concerned that the patient is going to require have a higher level of care. This is the patient's fifth time with angioedema of unknown etiology. He states that he did speak to an administrative sales assistant at [facility] and the patient does have an upcoming appointment but does not feel that the patient should be discharged home. I did discuss possible transfer to [facility] with the patient who is agreeable at this time. Will contact transfer center. 02/01/19 12:[address] Castillo from [facility] who is unsure whether they can contribute anything to the patient's care. I have contacted Dr. Puckett regarding this. Awaiting callback 02/01/19 19:48 Dr. Puckett did come to the emergency department and evaluate the patient. He is concerned for the recurrence of the symptoms. We did try several times to get in touch with Dr. Castillo from [facility] but were unsuccessful. Dr. Puckett did contact [facility] and was able to get the patient admitted. Patient was accepted by Dr. Selena Cat. Patient and family very happy with the transfer. She had no further progression of her lip swelling though it is still present. Estimated time of arrival for [facility] transport is 2129. - Vital Signs Vital signs: Temp Pulse Resp BP Pulse Ox 98.5 F 21 H 161/87 H 100 02/01/19 16:01 02/01/19 19:08 02/01/19 18:01 02/01/19 17:10 Critical Care Note - Critical Care Note Total time excluding time spent on procedures (mins): 45 - Minutes of critical care time spent in direct contact evaluating and reevaluating the patient, treating symptoms, reviewing labs and studies and speaking with family and consultants excluding any procedures Discharge - Discharge Clinical Impression: Angioedema Qualifiers: Encounter type: initial encounter Qualified Code(s): T78.3XXA - Angioneurotic edema, initial encounter Hypertension Qualifiers: Hypertension type: unspecified Qualified Code(s): I10 - Essential (primary) hypertension Condition: Good Disposition: [facility] Referrals: LOVE PUCKETT MD [Primary Care Provider] - Follow up as needed
[2019-02-01 23:04] VITALS: BP 101/70
== END 2019-02-01 23:04 | disposition short-term general hospital (02) ==
LOC: ER 09:09
DX: T78.3XXA Angioneurotic edema, initial encounter (principal); I10 Essential (primary) hypertension; Z79.899 Other long term (current) drug therapy; Z88.8 Allergy status to other drugs, medicaments and biological substances; Z88.0 Allergy status to penicillin; Z91.018 Allergy to other foods
CPT/HCPCS: 99291; 96372; 96374; 96375; 86900; 86901; 36415; 36430; 86850; P9017; J1200; J0171; J2930; J2060; J7050; S0028; J3490

== ENCOUNTER 2019-02-21 20:51 | Emergency (ER) | payer MEDICARE ==
--- NOTE | 2019-02-21 21:33 | ER Document Report ---
ED Medical Screen (RME) - General Chief Complaint: Swelling Stated Complaint: SWELLING Time Seen by Provider: 02/21/19 21:30 Primary Care Provider: LOVE PUCKETT MD [Primary Care Provider] - Follow up as needed Notes: 73-year-old female for chief complaint of possible angioedema. She reports that she has swelling in her legs, feet, and hands. She denies facial, tongue, throat swelling, however she does report a vague shortness of breath. She denies chest pain or dizziness. She denies fever/chills. TRAVEL OUTSIDE OF THE [place] IN LAST 30 DAYS: No - Related Data Allergies/Adverse Reactions: lisinopril [Lisinopril] Allergy (Severe, Verified 02/01/19 09:11) Angioneurotic Edema banana Allergy (Unknown, Verified 02/01/19 09:11) Facial swelling penicillin G [Penicillin G] Allergy (Unknown, Verified 02/01/19 09:11) had as child levofloxacin [From Levaquin] Adverse Reaction (Severe, Verified 02/01/19 09:11) Swelling of Throat Past Medical History - Past Medical History Cardiac Medical History: Reports: Hx Hypercholesterolemia, Hx Hypertension Denies: Hx Coronary Artery Disease, Hx Heart Attack Pulmonary Medical History: Denies: Hx Asthma, Hx Bronchitis, Hx COPD, Hx Pneumonia Neurological Medical History: Denies: Hx Cerebrovascular Accident, Hx Seizures Renal/ Medical History: Denies: Hx Peritoneal Dialysis GI Medical History: Denies: Hx Hepatitis, Hx Hiatal Hernia, Hx Ulcer Musculoskeltal Medical History: Denies Hx Arthritis Infectious Medical History: Denies: Hx Hepatitis Past Surgical History: Reports: Hx Breast Surgery - Lump removed from breast in 2010, Hx Hysterectomy, Hx Thyroid Surgery - Left lobe of thryroid removed, Hx Tonsillectomy. Denies: Hx Mastectomy, Hx Open Heart Surgery, Hx Pacemaker. Comment Only: Hx Orthopedic Surgery - Feet - Immunizations Hx Diphtheria, Pertussis, Tetanus Vaccination: No Physical Exam - Vital signs Vitals: Temp Pulse Resp BP Pulse Ox 98.8 F 93 20 145/94 H 98 02/21/19 21:11 02/21/19 21:11 02/21/19 21:11 02/21/19 21:11 02/21/19 21:11 - HEENT Mouth/Lips: No: Angioedema Pharynx: Normal. No: Uvular edema, Potential airway comprom. - Extremities General lower extremity: Edema - Bilateral lower extremity edema to the legs and feet Course - Re-evaluation Re-evalutation: I do not see any evidence of angioedema. There is swelling of the hands and feet/legs however, vague shortness of breath. Work-up initiated for shortness of breath/possible other causes of peripheral edema. I have greeted and performed a rapid initial assessment of this patient. A comprehensive ED assessment and evaluation of the patient, analysis of test results and completion of the medical decision making process will be conducted by additional ED providers. - Vital Signs Vital signs: Temp Pulse Resp BP Pulse Ox 98.8 F 93 20 145/94 H 98 02/21/19 21:11 02/21/19 21:11 02/21/19 21:11 02/21/19 21:11 02/21/19 21:11 Doctor's Discharge - Discharge Referrals: LOVE PUCKETT MD [Primary Care Provider] - Follow up as needed
--- NOTE | 2019-02-21 22:01 | RADIOLOGY REPORT (SQ) ---
EXAM DESCRIPTION: XR CHEST 1 VIEW COMPLETED DATE/TME: 02/21/2019 21:30 CLINICAL HISTORY: 73 years, Female, shortness of breath COMPARISON: Prior study from 05/15/2014 NUMBER OF VIEWS: One TECHNIQUE: Single frontal view of the chest was obtained. LIMITATIONS: None. FINDINGS: Cardiac and mediastinal contours are stable. Lungs are clear. No pleural effusion or pneumothorax. IMPRESSION: No acute disease. copyright 2010 [employer]- All Rights Reserved
--- NOTE | 2019-02-21 22:31 | EKG REPORT ---
SEVERITY:- BORDERLINE ECG - SINUS RHYTHM PROBABLE LEFT ATRIAL ABNORMALITY BORDERLINE T ABNORMALITIES, INFERIOR LEADS : Confirmed by: Cayden Fuentes 21-Feb-2019 22:30:28
[2019-02-21 22:35] LABS: ABSOLUTE EOSINOPHILS # (AUTO) 0.1 10^3/uL (0.0-0.6); ABSOLUTE MONOCYTES (AUTO) 0.7 10^3/uL (0.1-1.4); ABSOLUTE NEUT (AUTO) 4.9 10^3/uL (1.7-8.2); BASOPHILS % (AUTO) 0.3 % (0-2); HEMATOCRIT 36.7 % (36.0-47.0); HEMOGLOBIN 12.3 g/dL (12.0-15.5); LYMPHOCYTES % (AUTO) 34.1 % (13-45); MEAN CORPUSCULAR HEMOGLOBIN 25.7 pg (27.0-33.4); MEAN CORPUSCULAR HGB CONC 33.6 g/dL (32.0-36.0); MEAN CORPUSCULAR VOLUME 77 fl (80-97); PLATELET COUNT 212 10^3/uL (150-450); RED BLOOD COUNT 4.79 10^6/uL (3.72-5.28); RED CELL DISTRIBUTION WIDTH 16.6 % (11.5-14.0); SEGMENTED NEUTROPHILS % (AUTO) 56.6 % (42-78); TOTAL CELLS COUNTED % (AUTO) 100 %; WHITE BLOOD COUNT 8.7 10^3/uL (4.0-10.5)
[2019-02-21 22:45] LABS: APPEARANCE,URINE CLEAR; BILIRUBIN,URINE NEGATIVE (NEGATIVE); COLOR,URINE STRAW; GLUCOSE, URINE NEGATIVE (NEGATIVE); KETONES,URINE NEGATIVE (NEGATIVE); LEUKOCYTE ESTERASE,URINE NEGATIVE (NEGATIVE); NITRITE,URINE NEGATIVE (NEGATIVE); PROTEIN,URINE NEGATIVE (NEGATIVE); URINE SPECIFIC GRAVITY 1.005; UROBILINOGEN,URINE NEGATIVE mg/dL (<2.0)
[2019-02-21 22:58] LABS: ALANINE AMINOTRANSFERASE 31 U/L (9-52); ALBUMIN 4.2 g/dL (3.5-5.0); ALKALINE PHOSPHATASE 66 U/L (38-126); ANION GAP 10 (5-19); ASPARTATE AMINO TRANSFERASE 27 U/L (14-36); BILIRUBIN,DIRECT 0.1 mg/dL (0.0-0.4); BILIRUBIN,TOTAL 0.3 mg/dL (0.2-1.3); BLOOD UREA NITROGEN 9 mg/dL (7-20); CALCIUM 10.2 mg/dL (8.4-10.2); CARBON DIOXIDE 24 mmol/L (22-30); CHLORIDE 106 mmol/L (98-107); GLUCOSE 95 mg/dL (75-110); SODIUM 140.4 mmol/L (137-145); TOTAL PROTEIN 7.2 g/dL (6.3-8.2)
[2019-02-21 23:08] LABS: NT PRO BNP 66 pg/mL (5-900)
[2019-02-21 23:13] LABS: TROPONIN I < 0.012 ng/mL
--- NOTE | 2019-02-22 04:15 | ER Document Report ---
ED General - General Chief Complaint: Swelling Stated Complaint: SWELLING Time Seen by Provider: 02/21/19 21:30 Notes: Patient is a pleasant 73-year-old female presents with swelling in her hands and feet. She denies any swelling in her tongue or lips. She does have a history of angioedema and says she usually gets swelling in her tongue and lip and face but is never had in the hands and feet. Started today. She said she was out here earlier today but not for a long period time. No fevers. No vomiting. No difficulty breathing. No other complaints at this time. Since arriving to the ER the swelling has resolved. No itching. TRAVEL OUTSIDE OF THE [place] IN LAST 30 DAYS: No - Related Data Allergies/Adverse Reactions: lisinopril [Lisinopril] Allergy (Severe, Verified 02/01/19 09:11) Angioneurotic Edema banana Allergy (Unknown, Verified 02/01/19 09:11) Facial swelling penicillin G [Penicillin G] Allergy (Unknown, Verified 02/01/19 09:11) had as child levofloxacin [From Levaquin] Adverse Reaction (Severe, Verified 02/01/19 09:11) Swelling of Throat Past Medical History - Social History Smoking Status: Unknown if Ever Smoked Frequency of alcohol use: None Drug Abuse: None Family History: Reviewed & Not Pertinent Patient has suicidal ideation: No Patient has homicidal ideation: No - Past Medical History Cardiac Medical History: Reports: Hx Hypercholesterolemia, Hx Hypertension Denies: Hx Coronary Artery Disease, Hx Heart Attack Pulmonary Medical History: Denies: Hx Asthma, Hx Bronchitis, Hx COPD, Hx Pneumonia Neurological Medical History: Denies: Hx Cerebrovascular Accident, Hx Seizures Renal/ Medical History: Denies: Hx Peritoneal Dialysis GI Medical History: Denies: Hx Hepatitis, Hx Hiatal Hernia, Hx Ulcer Musculoskeletal Medical History: Denies Hx Arthritis Infectious Medical History: Denies: Hx Hepatitis Past Surgical History: Reports: Hx Breast Surgery - Lump removed from breast in 2010, Hx Hysterectomy, Hx Thyroid Surgery - Left lobe of thryroid removed, Hx Tonsillectomy. Denies: Hx Mastectomy, Hx Open Heart Surgery, Hx Pacemaker. Comment Only: Hx Orthopedic Surgery - Feet - Immunizations Hx Diphtheria, Pertussis, Tetanus Vaccination: No Hx Pneumococcal Vaccination: 10/01/12 Review of Systems - Review of Systems Notes: My Normal Review Basic REVIEW OF SYSTEMS: CONSTITUTIONAL : Denies fever, chills, or sweats. Denies recent illness. EENT: Denies eye, ear, throat, or mouth pain or symptoms. Denies nasal or sinus congestion. CARDIOVASCULAR: Denies chest pain. RESPIRATORY: Denies cough, cold, or chest congestion. Denies shortness of breath, difficulty breathing, or wheezing. GASTROINTESTINAL: Denies abdominal pain. Denies nausea, vomiting, or diarrhea. MUSCULOSKELETAL: Swelling in feet and hands. SKIN: Denies rash or skin lesions. NEUROLOGICAL: Denies altered mental status or loss of consciousness. Denies headache. Denies weakness or paralysis or loss of use of either side. Denies problems with gait or speech. Denies sensory or motor loss. ALL OTHER SYSTEMS REVIEWED AND NEGATIVE. Physical Exam - Vital signs Vitals: Temp Pulse Resp BP Pulse Ox 98.8 F 93 20 145/94 H 98 02/21/19 21:11 02/21/19 21:11 02/21/19 21:11 02/21/19 21:11 02/21/19 21:11 - Notes Notes: General Appearance: Well nourished, alert, cooperative, no acute distress, no obvious discomfort. Well-appearing. Vitals: reviewed, See vital signs table. Head: no swelling or tenderness to the head Eyes: PERRL, EOMI, Conjuctiva clear Mouth: No decreasd moisture Throat: No tonsillar inflammation, No airway obstruction, No lymphadenopathy Neck: Supple, no neck tenderness, No swelling Lungs: No wheezing, No rales, No rhonci, No accessory muscle use, good air exchange bilaterally. Heart: Normal rate, Regular rythm, No murmur, no rub Extremities: good pulses in all extremities, no edema. Skin: warm, dry, appropriate color, no rash Neuro: speech clear, oriented x 3, normal affect, responds appropriately to questions. Course - Re-evaluation Re-evalutation: 02/22/19 05:36 By time patient is brought back to her room her swelling has completely resolved. She has no swelling in her hands or feet at all at this time. She looks well. She never had any swelling of her face or tongue. No signs of angioedema. At this time I feel the patient safe to be discharged home. Encouraged her to stay out of the heat and humidity. I informed her if she starts get swelling in her feet again then she should elevate them to help reduce the amount of swelling. I encouraged her return to ER immediately if she has difficulty breathing, difficulty swallowing, swelling in her face or lips, or recurring swelling in hands and feet that is not improving with elevation. Patient agrees with plan and will be discharged home. Dictation of this chart was performed using voice recognition software; therefore, there may be some unintended grammatical errors. - Vital Signs Vital signs: Temp Pulse Resp BP Pulse Ox 98 F 93 17 128/86 H 97 02/22/19 04:37 02/21/19 21:11 02/22/19 04:37 02/22/19 04:37 02/22/19 04:37 - Laboratory Result Diagrams: 02/21/19 22:12 02/21/19 22:12 Laboratory results interpreted by me: 02/21/19 22:12 MCV 77 L MCH 25.7 L RDW 16.6 H - EKG Interpretation by Me Additional EKG results interpreted by me: 02/22/19 04:15 EKG is reviewed and interpreted by me. EKG shows sinus rhythm with a rate of [address] segment elevation or depression. No ischemic T wave inversions. [place] interval, QRS duration, QTc intervals are within normal range. Old EKG for comparison is from January 24, 2019. Discharge - Discharge Clinical Impression: Extremity edema Condition: Good Disposition: HOME, SELF-CARE Additional Instructions: Please continue to take your medications as prescribed. Please return to the ER immediately if you have any swelling to your face or lips or tongue, difficulty breathing, or if you have extremity swelling that is getting progressively worse. Please follow-up with your doctor next week for reevaluation.
[2019-02-22 04:39] VITALS: BP 128/86
== END 2019-02-22 04:39 | disposition home or self-care (01) ==
LOC: ER 20:51
DX: R60.9 Edema, unspecified (principal); E78.00 Pure hypercholesterolemia, unspecified; I10 Essential (primary) hypertension; Z88.0 Allergy status to penicillin; Z88.3 Allergy status to other anti-infective agents; Z90.710 Acquired absence of both cervix and uterus
CPT/HCPCS: 36415; 71045; 80053; 81001; 83880; 84484; 85025; 93005; 93010; 99284